=== PATIENT | female | born 1990 | race Caucasian/White ===

== ENCOUNTER 2020-04-09 10:44 | Outpatient (RCR) | payer OTHER, SELFPAY | END 2020-04-09 23:59 | disposition home or self-care (01) | LOC: ANHAUDIO 10:44 | PROVIDERS: Visit Provider Pediatrics | DX: Z46.1 Encounter for fitting and adjustment of hearing aid (principal) | CPT/HCPCS: V5014 ==

== ENCOUNTER 2021-06-01 13:15 | Outpatient (RCR) | payer OTHER, SELFPAY | END 2021-06-01 23:59 | disposition home or self-care (01) | LOC: ANHAUDIO 13:15 | PROVIDERS: PCP Nurse Practitioner Family; Visit Provider Nurse Practitioner Family | DX: Z46.1 Encounter for fitting and adjustment of hearing aid (principal) | CPT/HCPCS: 92593 ==

== ENCOUNTER 2023-05-05 09:48 | Outpatient (CLI) | payer OTHER, SELFPAY ==
--- NOTE | ~2023-05-05 | US_ITS ---
EXAMINATION: US pelvic complete w TV DATE: 05/05/2023 10:26 INDICATION: Pelvic and perineal pain TECHNIQUE: Multiple transabdominal and endovaginal sonographic images of the pelvis were obtained. COMPARISON: 04/11/2023 FINDINGS: The uterus measures 8.0 x 4.3 x 5.3 cm. The endometrial complex measures 4 mm. The right ov ramila measures 2.9 x 2.3 x 2.9 cm. A hypoechoic area abutting the right ovary appears to reflect adjace nt bowel. The left ovary measures 2.9 x 2.1 x 2.1 cm. There is normal vascular flow in the ovaries. T here is no free fluid in the pelvis. IMPRESSION: 1. No sonographic correlate for the patient's symptoms. Reviewed, dictated and finalized at location L.
== END 2023-05-05 09:49 | disposition home or self-care (01) ==
LOC: ANHIMG 09:49
PROVIDERS: PCP Nurse Practitioner Family; Visit Provider Obstetrics & Gynecology
DX: R10.2 Pelvic and perineal pain (principal)
CPT/HCPCS: 76830; 76856

== ENCOUNTER 2023-05-17 10:55 | Outpatient (CLI) | payer OTHER, SELFPAY ==
[2023-05-17 11:22] LABS: Hematocrit 39.3 % (37.0-47.0); Mean Corpuscular HGB Conc 33.1 g/dl (32-36); Mean Corpuscular Hemoglobin 30.3 pg (26-34); Mean Corpuscular Volume 91.6 fl (80-100); Mean Platelet Volume 9.2 fl (7.4-10.4); Platelet Count Result 216 k/mm3 (150-375); Red Blood Count 4.29 M/mm3 (4.2-5.4); Red Cell Distribution Width 13.3 % (11.5-14.5); White Blood Count 5.5 K/mm3 (4.5-10.0)
== END 2023-05-17 10:56 | disposition home or self-care (01) ==
LOC: ANHLAB 10:57
PROVIDERS: PCP Nurse Practitioner Family; Visit Provider Obstetrics & Gynecology
DX: N81.4 Uterovaginal prolapse, unspecified (principal)
CPT/HCPCS: 36415; 85027; 86850; 86900; 86901

== ENCOUNTER 2023-05-19 02:00 | Day surgery (SDC) | payer OTHER, SELFPAY ==
[2023-05-10 16:13] VITALS: BMI 25.7
--- NOTE | 2023-05-10 16:57 | PC.NURSE ---
Report to the Outpatient Waiting Room, entrance under the green pavilion located off [facility], at 0800 on date 05-19-23. Planned Procedure Time: 1000. Time changes happen often and if your time is changed the preop area will call you the afternoon before. - You and your visitor will be asked to self-screen and do not enter if you have any COVID symptoms. - A mask is optional within the hospital at this time. Patients may have clear liquids (water, carbonated beverages, clear teas, apple juice) until 3 hours prior to surgery with a maximum of 20 ounces. 0700 - No food from midnight until time of surgery - Infants may have breast milk until 4 hours before surgery, formula 6 hours prior to surgery. - Children will be allowed to drink immediately following surgery. If applicable, please bring a bottle or sippy cup to assist with drinking. Juice, water, soda, and popsicles are readily available. For infants on formula, please bring formula the day of surgery. Pacifiers are allowed. Take the following medications with a SIP of water the morning of surgery: duloxetine, [place] if needed DO NOT STOP ANY OF YOUR OTHER PRESCRIPTION MEDICATIONS PRIOR TO SURGERY EXCEPT THE FOLLOWING Medications to discontinue per physician: N/A Please no make-up, nail haitian, hairspray, perfume, deodorant, or body powder the day of surgery. No jewelry (including any body piercings) or valuables the day of surgery, leave them at home. Please take a shower or bath the night before, or the morning of, surgery with an antibacterial soap. Wear comfortable, loose fitting clothing. Children are encouraged to wear pajamas. - Jewelry must be removed prior to entering the operating room. Rings and piercings that are not removed may be cut off. - The hospital will not accept responsibility for valuables. - Please leave all valuables, including medications, at home the day of surgery. If you are going home after surgery, a licensed shuttle truck driver must drive you home. - NO public transportation without another adult if you receive anesthesia. - We recommend that an adult stay with you for 24 hours following discharge. - We also recommend that you do not drive, make important decision, drink alcoholic beverages, or take any drugs that were not prescribed by your health care provider for at least 24 hours after your discharge time. For Pediatric surgeries, we recommend two adults accompany the child home. Follow any additional instructions given to you from your surgeon. If you or anyone in your household have experienced Covid symptoms in the past week, please notify your surgeon or the nurse liaison at the phone number below for possible testing. Telephone instructions given to Violette Marion and asked if any additional questions and then verbalized understanding. Patient advised to call surgeon office or pre surgery nurse liaison [phone] if any additional questions.
--- NOTE | 2023-05-18 15:47 | PM.IMHP ---
H&P: HPI History of Present Illness Date/Time: 05/18/23 15:47 33-year-old 2 para 10/24/2002 female presents with multiple complaints. Primarily cycles are heavy lasting 8-10 days 4-5 days heavy with clotting cramping, pain also throughout the month to the point where she is missing activities of daily living. Also relates vaginal pressure and fullness in this is increased with activity and long stretches of standing or walking. She has had a bilateral salpingectomy in the past for contraception, and does not desire any type of hormonal manipulation help with the bleeding. Also declines pessary or nonsurgical management of her uterine prolapse. Chief Complaint: Menometrorrhagia Uterine prolapse Review of Systems Review of Systems: All systems reviewed & are unremarkable except as noted in HPI and below PMFSH Past Medical History Medical History Depression Surgical History Surgical History History of ear surgery BILATERAL EAR RECONSTRUCTION AT AGE 11 History of gynecological procedure (12/13/13) DX LAPARSCOPY, ADHESIOLYSIS History of gynecological procedure (03/07/12) mirena iud insertion/ removal in OR 10/08/2021 History of hysteroscopy (10/08/21) Hscope D&C / IUD removal / Bilateral salpingectomy Hx of ovarian cystectomy (04/16/13) LAPAROSCOPY, LEFT OVARIAN CYSTECTOMY Family History Family History Grandparent Cervical cancer maternal grandmother Social History Social History Smoking status: Never smoker Second hand tobacco smoke exposure: No Alcohol intake: current Drinks per week: 2 Alcohol use details: occasionally drinks hard alcohol Substance use: current Substance use type: marijuana Other substance usage details: smokes daily Lack of Transportation: No Lack of Food: Never True Current Housing: I Have Housing Concerned About Future Housing: No Difficulty Paying Gas/Electric Bills: No Difficulty Paying for Meds: No Currently Unemployed: Decline to Answer Education: High School Diploma/GED Difficulty w/ Childcare or Family Care: Decline to Answer Living arrangements: with family Additional living arrangements comments: Occupation/Education: occupation 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 Gender identity (if verbalized by the patient): Female Sexual Orientation (if Verbalized by the Patient): Straight or Heterosexual Spiritual care concerns: No Meds Home Medications and Allergies Home Medications Medication Instructions Recorded Confirmed Type duloxetine 60 mg capsule,delayed 60 mg PO DAILY 02/11/23 05/10/23 History release ciprofloxacin HCl 500 mg tablet 500 mg PO BID 05/10/23 05/10/23 History hydrocodone 5 mg-acetaminophen 325 1 tablet PO Q4H PRN Pain (Scale 05/10/23 05/10/23 History mg tablet Score 4-6) metronidazole 500 mg tablet 500 mg PO BID 05/10/23 05/10/23 History Allergies Allergy/AdvReac Type Severity Reaction Status Date / Time No Known Allergies Allergy Verified 05/10/23 16:12 Exam Const: General: cooperative, healthy appearing and comfortable Resp: Effort & Inspection: normal respiratory effort Auscultation: clear to auscultation bilaterally Cardio: Rate: regular rate Rhythm: regular rhythm GI: Inspection: normal to inspection Auscultation: normal bowel sounds : External Female Exam: normal external appearance Speculum Exam - Vagina: normal appearance of the vagina Speculum Exam - Cervix: normal appearance of the cervix Bimanual exam- vagina & uterus: normal bimanual exam and Uterus displaced ( prolapse noted) Bimanual Exam- Adnexa, other: normal adnexae Assessment and Plan Assessment and plan (1) Menometrorrhagia: Code(s): N
[2023-05-19] VITALS (16 sets, daily range): BP systolic 94–122; BP diastolic 52–74; PULSE 57–91; RESP 16–20; TEMP 36.6–36.9; O2SAT 95–100; BMI 26.1
[2023-05-19] MEDS: LACTATED RINGERS 1,000 ML 30 ML IV CONT ×2 (08:45→11:52)
[2023-05-19] MEDS: KETOROLAC 15 MG/ML VIAL (*BKC) IV PUSH (08:50)
--- NOTE | 2023-05-19 09:01 | WPDANESEPPF ---
Anes - Initial Pre Proc Eval Procedure: Operation Date: 05/19/23 10:00 Proposed Procedures p Robotic Assisted Total Laparoscopic Hysterectomy - Reagan Mahmood MD Date/Time: 05/19/23 09:01 Surgeon: Reagan Mahmood MD Pre Op Diagnosis: uterine prolapse, Menometrorrhagia Patient Data Age: 33 Gender: F Height: 1.6 m Weight: 66.9 kg Last Vital Signs Temp 36.9 C 05/19/23 08:10 Pulse 73 05/19/23 08:10 Resp 16 05/19/23 08:10 BP 112/74 05/19/23 08:10 Pulse Ox 100 05/19/23 08:10 O2 Del Method Room Air 05/19/23 08:10 Allergies Allergy/AdvReac Type Severity Reaction Status Date / Time No Known Allergies Allergy Verified 05/19/23 08:54 Home Medications Medication Instructions Recorded Confirmed Type duloxetine 60 mg capsule,delayed 60 mg PO DAILY 02/11/23 05/10/23 History release ciprofloxacin HCl 500 mg tablet 500 mg PO BID 05/10/23 05/10/23 History hydrocodone 5 mg-acetaminophen 325 1 tablet PO Q4H PRN Pain (Scale 05/10/23 05/10/23 History mg tablet Score 4-6) metronidazole 500 mg tablet 500 mg PO BID 05/10/23 05/10/23 History Patient hx anesthesia problems: none Family hx anesthesia problems: none Results Review: All pre-operative results and documents have been reviewed as part of the pre-operative evaluation. [facility] Past Medical History Medical History Depression Surgical History Surgical History History of ear surgery BILATERAL EAR RECONSTRUCTION AT AGE 11 History of gynecological procedure (12/13/13) DX LAPARSCOPY, ADHESIOLYSIS History of gynecological procedure (03/07/12) mirena iud insertion/ removal in OR 10/08/2021 History of hysteroscopy (10/08/21) Hscope D&C / IUD removal / Bilateral salpingectomy Hx of ovarian cystectomy (04/16/13) LAPAROSCOPY, LEFT OVARIAN CYSTECTOMY Family History Family History Grandparent Cervical cancer maternal grandmother Social History Social History Smoking status: Never smoker Second hand tobacco smoke exposure: No Alcohol intake: current Drinks per week: 2 Alcohol use details: occasionally drinks hard alcohol Substance use: current Substance use type: marijuana Other substance usage details: smokes daily Lack of Transportation: No Lack of Food: Never True Current Housing: I Have Housing Concerned About Future Housing: No Difficulty Paying Gas/Electric Bills: No Difficulty Paying for Meds: No Currently Unemployed: Decline to Answer Education: High School Diploma/GED Difficulty w/ Childcare or Family Care: Decline to Answer Living arrangements: with family Additional living arrangements comments: Occupation/Education: occupation 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 Gender identity (if verbalized by the patient): Female Sexual Orientation (if Verbalized by the Patient): Straight or Heterosexual Spiritual care concerns: No Anes - Eval Final PreProcedure Day of Procedure 05/19/23 09:01 Patient weight: overweight Heart: regular rate and rhythm Lungs: clear to auscultation Airway: Mallampati scale class II Neurological: alert and oriented Last oral intake: >/= 8 hours ASA classification: III Emergent: no Anesthetic plan: proceed Anesthesia type and monitoring: general ETT and standard monitoring Results Review: All pre-operative results and documents have been reviewed as part of the pre-operative evaluation. Informed Consent: The patient's anesthetic plan and its attendant risks and benefits were discussed with the patient/family/POA. Questions were solicited and answers provided to the satisfaction of the patient/family/POA.
--- NOTE | 2023-05-19 09:28 | WPDHPUPDATE1 ---
History and Physical Update Update Date/Time: 05/19/23 09:28 History and Physical has been reviewed, including an updated exam of the patient. There are NO changes in the patient's condition. Risks, benefits, and alternatives have been discussed and questions answered. Patient agrees to proceed with procedure.
[2023-05-19] MEDS: ceFAZolin 2 GM/D5W 50 ML 2 GM/50 ML BAG IVPB (10:15)
--- NOTE | 2023-05-19 11:38 | W.PM.PROC2 ---
Procedure Note - Detailed Date of Procedure 05/19/23 Pre-op Diagnosis 1. Uterine prolapse 2. Menometrorrhagia 3. Dysmenorrhea Post-op Diagnosis Same Procedure Performed 1 robotic assisted laparoscopic hysterectomy with bilateral salpingectomy and ovarian preservation Surgeon Reagan Mahmood MD Anesthesia General Findings Uterus mildly enlarged and boggy, prolapses to the vaginal introitus. Evidence of prior salpingectomy with distal portion of tube remaining Description of Procedure Patient prepped draped in usual manner for this procedure. Cervical instruments were placed for uterine mobility throughout the case. Abdominal trocar sites were marked and placed under direct visualization. Instruments were placed after the [employer] system was attached and the surgeon moved to the console. Findings were noted as above in 1st bilaterally the the mesial salpinx was cauterized and cut in the sections tube removed. Utero-ovarian ligament cauterized and cut broad ligament cauterized and cut the bladder flap developed without difficulty. Posterior leaf the broad ligament was also incised to skeletonize the uterine vessels. These were cauterized cut without difficulty. Posterior cul-de-sac was entered and this incision was carried circumferentially to separate the cervix from the vagina. Uterus was delivered into the vagina. Vaginal cuff was then closed using V lock suture from right angle to midline and then from the left angle midline with good approximation hemostasis noted. Irrigation was undertaken there was no bleeding [place] arm was placed throughout the vaginal cuff. At this point the procedure was considered terminated, gas allowed to escape, trocars removed and incisions approximated using 4-0 Monocryl. Patient was sent to recovery room in stable condition. Estimated Blood Loss 50 Drains No Packing No Pathology Yes Complications No immediate complications Condition Stable Disposition PACU [facility] Billing Surgery - Charge Forward: Surgery Billing
--- NOTE | 2023-05-19 12:11 | SUR.PHASEI ---
Hearing aids and glasses available to patient upon wake up in the PACU.
[2023-05-19] MEDS: fentaNYL CITRATE INJ (*CRX) 100 MCG/2 ML VIAL 25 MCG IV PUSH ×4 (12:22→12:37)
--- NOTE | 2023-05-19 13:24 | PC.NURSE ---
This patient, Violette Marion, was received from PACU via bed on 05/19/23 at 1324. Patient/family oriented to unit policies and routines.
[2023-05-19] MEDS: DEXTROSE 5%/0.45% SOD CHL 1,000 ML 125 ML IV CONT (13:55)
[2023-05-19] MEDS: KETOROLAC 30 MG/ML VIAL (*BKC) IV PUSH (13:59)
[2023-05-19] MEDS: HYDROcodone/acetaminophen (*CRX) 10-325 MG TABLET 1 TAB PO ×3 (14:32→21:17)
[2023-05-19] MEDS: IBUPROFEN 600 MG TABLET PO (21:16)
[2023-05-20] MEDS: HYDROcodone/acetaminophen (*CRX) 10-325 MG TABLET 1 TAB PO (00:18)
[2023-05-20] MEDS: IBUPROFEN 600 MG TABLET PO (04:08)
[2023-05-20 04:25] VITALS: BP 110/69; PULSE 58; RESP 16; TEMP 36.6; O2SAT 97
[2023-05-20 05:43] LABS: Basophils Percent Auto 0.2 % (0.2-1.2); Immature Granulocyte Absolute 0.04 K/mm3 (0.00-0.031); Immature Granulocyte Percent A 0.4 % (0-0.5); Lymphocytes Absolute Auto 1.41 K/mm3 (0.9-3.2); Lymphocytes Percent Auto 13.7 % (18.3-44.2); Mean Corpuscular HGB Conc 32.4 g/dl (32-36); Mean Corpuscular Hemoglobin 29.9 pg (26-34); Mean Platelet Volume 9.5 fl (7.4-10.4); Monocytes Absolute Auto 0.6 K/mm3 (0.1-0.6); Monocytes Percent Auto 5.5 % (2.6-8.5); Neutrophils Absolute Auto 8.2 K/mm3 (1.3-6.7); Neutrophils Percent Auto 80.2 % (45.5-73.1); Platelet Count Result 235 k/mm3 (150-375); Red Blood Count 4.02 M/mm3 (4.2-5.4); Red Cell Distribution Width 13.2 % (11.5-14.5); White Blood Count 10.3 K/mm3 (4.5-10.0)
[2023-05-20] MEDS: HYDROcodone/acetaminophen (*CRX) 5-325 MG TABLET 1 TAB PO (08:10)
[2023-05-20] MEDS: DULoxetine HCL 60 MG CAPSULE.DR PO (08:10)
[2023-05-20 08:15] VITALS: BP 117/70; PULSE 60; RESP 16; TEMP 37.2; O2SAT 99
[2023-05-20] MEDS: ONDANSETRON HCL ODT 4 MG TABLET (09:19)
== END 2023-05-20 09:35 | disposition home or self-care (01) ==
LOC: ANHSURGERY 08:02 → ANHOB2 13:56
PROVIDERS: PCP Nurse Practitioner Family; Visit Provider Obstetrics & Gynecology
PROC: (CPT 58571; principal; 2023-05-19 10:00)
DX: N81.4 Uterovaginal prolapse, unspecified (principal); D25.0 Submucous leiomyoma of uterus; D25.1 Intramural leiomyoma of uterus; N92.1 Excessive and frequent menstruation with irregular cycle; N94.6 Dysmenorrhea, unspecified; F32.A Depression, unspecified; F12.90 Cannabis use, unspecified, uncomplicated; Z79.891 Long term (current) use of opiate analgesic; N83.8 Other noninflammatory disorders of ovary, fallopian tube and broad ligament
CPT/HCPCS: 58571; S2900; 36415; 85025; 88307; 99199; A9270; J0690; J1100; J1885; J2250; J2405; J2704; J3010; J7120

== ENCOUNTER 2023-10-26 11:00 | Outpatient (CLI) | payer OTHER, SELFPAY ==
--- NOTE | ~2023-10-26 | MMUS_ITS ---
EXAMINATION: MM diagnostic cheo BI w kyra, US breast LT limited HISTORY: Palpable lump in the upper outer quadrant of the left breast TECHNIQUE: Craniocaudal, mediolateral, and mediolateral oblique 3-D tomosynthesis images of the elver ts were performed and synthetic 2-D images were generated. CAD analysis was submitted and interpreted . High resolution limited left breast ultrasound was performed. COMPARISON: None, baseline BREAST PARENCHYMAL COMPOSITION: There are scattered areas of fibroglandular density. FINDINGS: MAMMOGRAPHIC FINDINGS: No suspicious mass, calcification, or architectural distortion are identified in either breast to sug gest malignancy. No mammographic correlate is identified for the patient's reported palpable lump in the upper outer quadrant of the left breast. ULTRASOUND: There is no evidence of focal abnormal solid or cystic mass in the vicinity of the patient's palpable lump in the upper outer quadrant of the left breast. IMPRESSION: 1. No specific mammographic or sonographic correlate is identified for the reported palpable abnormal ity of concern in the upper outer quadrant of the left breast. Further evaluation at this time should be based on clinical assessment. Continued follow-up physical examination is recommended. 2. Recommend routine screening mammography beginning at age 40. BI-RADS Category 1: Negative Reviewed, dictated and finalized at location A. ICAL CARE MANAGER IMPRESSION: 1. No specific mammographic or sonographic correlate is identified for the repo rted palpable abnormality of concern in the upper outer quadrant of the left br east. Further evaluation at this time should be based on clinical assessment. C ontinued follow-up physical examination is recommended. 2. Recommend routine screening mammography beginning at age 40. BI-RADS Category 1: Negative
== END 2023-10-26 11:01 | disposition home or self-care (01) ==
LOC: ANHIMG 11:02
PROVIDERS: PCP Nurse Practitioner Family; Visit Provider Student in an Organized Health Care Education/Training Program
DX: N63.21 Unspecified lump in the left breast, upper outer quadrant (principal)
CPT/HCPCS: 76642; 77062; 77066; G0279

== ENCOUNTER 2024-03-08 19:20 | Emergency (ER) | payer OTHER, SELFPAY ==
[2024-03-08 19:27] VITALS: BP 116/67; PULSE 76; RESP 18; TEMP 36.3; O2SAT 99
--- NOTE | 2024-03-08 19:45 | ED.SKABFB ---
HPI - Skin/Abscess/Foreign Bdy General Chief complaint: Skin/Abscess/Foreign Body Stated complaint: rash Time Seen by Provider: 03/08/24 19:35 Source: patient and RN notes reviewed Mode of arrival: ambulatory Limitations: no limitations History of Present Illness HPI narrative: Patient presents today complaining of rash to the bilateral lateral thighs that appeared at approximately 1:00 p.m. today. 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 She went to the school nurse and got some calamine lotion and cough heard both of her upper and lower legs with the calamine lotion. She did scratch her legs a lot today as well. She is not on any blood thinners or aspirin. She has not taken anything for the itching today, and they do continue to itch. No changes in household products, no new plant or animal exposures. She did recently wean off her duloxetine and start Wellbutrin. Related Data Allergies Allergy/AdvReac Type Severity Reaction Status Date / Time No Known Allergies Allergy Verified 03/08/24 19:28 Review of Systems Review of Systems: CONSTITUTIONAL: Denies body aches, fever, chills, or sweats. EYES: Denies visual changes, redness, or discharge. ENT: Denies rhinorrhea, congestion, sore throat, or otalgia. CARDIOVASCULAR: Denies chest pain, palpitations, or edema. RESPIRATORY: Denies cough or dyspnea. GASTROINTESTINAL: Denies abdominal pain, nausea, vomiting, or diarrhea. GENITOURINARY: Denies dysuria or hematuria. SKIN: + rash MUSCULOSKELETAL: Denies back pain, joint pain, or myalgia. NEUROLOGIC: Denies headache, numbness, tingling, or weakness. PSYCH: Denies depression or anxiety. [facility] Past Medical History Medical History Depression Fallen bladder Hearing loss, bilateral Major depression, recurrent Surgical History Surgical History History of ear surgery BILATERAL EAR RECONSTRUCTION AT AGE 11 History of gynecological procedure (12/13/13) DX LAPARSCOPY, ADHESIOLYSIS History of gynecological procedure (03/07/12) mirena iud insertion/ removal in OR 10/08/2021 History of hysteroscopy (10/08/21) Hscope D&C / IUD removal / Bilateral salpingectomy History of robot-assisted laparoscopic hysterectomy (05/19/23) robotic assisted laparoscopic hysterectomy with bilateral salpingectomy and ovarian preservation Hx of ovarian cystectomy (04/16/13) LAPAROSCOPY, LEFT OVARIAN CYSTECTOMY Family History Family History Grandparent Cervical cancer maternal grandmother Heart disease Social History Social History Smoking status: Never smoker Second hand tobacco smoke exposure: No Alcohol intake: current Drinks per week: 2 Alcohol use details: occasionally drinks hard alcohol Substance use: current Substance use type: marijuana Other substance usage details: smokes daily for relaxation Lack of Transportation: No Lack of Food: Never True Current Housing: I Have Housing Concerned About Future Housing: No Difficulty Paying Gas/Electric Bills: No Difficulty Paying for Meds: No Currently Unemployed: Decline to Answer Education: High School Diploma/GED Difficulty w/ Childcare or Family Care: Decline to Answer Living arrangements: with family Additional living arrangements comments: Occupation/Education: occupation 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 Please see nursing cali
== END 2024-03-08 19:47 | disposition home or self-care (01) ==
PROVIDERS: Emergency Provider Nurse Practitioner; PCP Nurse Practitioner Family
DX: S70.12XA Contusion of left thigh, initial encounter (principal); S70.11XA Contusion of right thigh, initial encounter; X58.XXXA Exposure to other specified factors, initial encounter; F33.9 Major depressive disorder, recurrent, unspecified
CPT/HCPCS: 99211; G0463

== ENCOUNTER 2024-05-24 08:17 | Outpatient (CLI) | payer OTHER, SELFPAY ==
--- NOTE | 2024-06-18 12:32 | WPDSLEEPSTUD ---
Sleep Study Date of Study: 05/24/24 Ordering Provider: Dayan Torres APRN Interpreting Physician: Santa Burden DO Sleep Study Type: Polysomnogram Height: 1.57 m Weight: 69.4 kg Body Mass Index: 28.0 Neck Circumference (inches): 14 [place]: 15 Reason for Sleep Study Daytime hypersomnia Sleep History The patient is a 34-year-old female that had a sleep study ordered by her primary care for evaluation of sleep apnea. 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 She occasionally awakens from sleep short of breath. She occasionally awakens at night with heartburn, belching or cough. She constantly snores and a is constantly loud enough that others complain. She frequently has trouble sleeping when she has a cold. She rarely wakes up gasping for air throughout the night. She constantly has breathing problems at night observed by herself or others. She constantly sweats excessively at night. She rarely has heart palpitations or irregular heartbeats during the night. She constantly falls asleep during the day but never while driving. She occasionally experiences loss of muscle tone when extremely emotional. She constantly has trouble at school or work due to sleepiness. She occasionally feels unable to move while waking up or falling asleep. She constantly experiences vivid dreamlike scenes upon awakening or falling asleep. She denies feeling afraid of going to sleep. She rarely has nightmares. She frequently remembers her dreams. She constantly has thoughts racing through her mind. She constantly feels sad, depressed and anxious. She frequently has muscular tension. She denies noticing parts of her body jerk. She denies kicking during the night. She occasionally has crawling and aching feelings in her legs and occasionally has leg pain during the night. She occasionally grinds her teeth during sleep but never awakens with morning jaw pain. She is occasionally bothered by pain during the day but rarely awakened by pain during the night. She rarely wakes up feeling stiff in the morning. She rarely wakes up with sore or achy muscles. She rarely wakes up with pain in the neck, spine and other joints. She goes to bed between 8-10 p.m. on weekdays and at 10:00 p.m. on the weekends. She is able to fall asleep immediately. She wakes up 2-3 times throughout the night to urinate and is able fall back asleep immediately. She does not have a set wake up time on the weekdays are weekends. She is unsure how many hours of sleep she gets per night. She will stay in bed different lengths of time after waking up the morning. She currently lives with her and 2 children. She denies consuming any caffeinated beverages within 2 hours of bedtime. She denies engaging in physical exercise before bedtime. She denies reading watching television before falling asleep. She will occasionally take naps in the afternoon or the evening but they are not refreshing. She does consume caffeinated beverages throughout the day. She does consume 2-3 alcoholic beverages per day. She denies tobacco use. She does use marijuana. [facility] Past Medical History Medical History Depression Fallen bladder Hearing loss, bilateral Major depression, recurrent Surgical History Surgical History History of ear surgery BILATERAL EAR RECONSTRUCTION AT AGE 11 History of gynecological procedure (12/13/13) DX LAPARSCOPY, ADHESIOLYSIS History of gynecological procedure (03/07/12) mirena iud insertion/ removal in OR 10/08/2021 History of hysteroscopy (10/08/21) Hscope D&C / IUD removal / Bilateral salpingectomy History of robot-assisted laparoscopic hysterectomy (05/19/23) robotic assisted laparoscopic hysterectomy with bilateral salpingectomy and ovarian preservation Hx of ovarian cystectomy (04/16/13) LAPAROSCOPY, LEFT OVARIAN CYSTECTOM
[2024-06-18 12:40] VITALS: BMI 28.0
== END 2024-05-25 07:18 | disposition home or self-care (01) ==
PROVIDERS: PCP Nurse Practitioner Family; Visit Provider Nurse Practitioner Family
DX: G47.10 Hypersomnia, unspecified (principal); G47.19 Other hypersomnia
CPT/HCPCS: 95810

== ENCOUNTER 2025-04-12 10:29 | Emergency (ER) | payer BC, SELFPAY ==
--- NOTE | 2025-04-12 10:36 | ED_ITS ---
HPI - Female Genitourinary General Chief complaint: Urogenital-Female Stated complaint: uti symptoms Time Seen by Provider: 04/12/25 10:55 Source: patient Mode of arrival: ambulatory Limitations: no limitations History of Present Illness HPI Narrative: Violette is a 34-year-old female patient presenting to the clinic today with complaints of possible UTI. She reports she has developed burning, frequency, urgency, bladder pain, and low back pain that started this morning. Has not taken anything for symptoms. Denies any fevers, chills, nausea, or vomiting. Related Data Home Medications ?Medication ?Instructions ?Recorded ?Confirmed ?Last Taken ?Type risperidone 0.5 mg tablet mg PO 05/22/24 05/22/24 Unknown History vilazodone 10 mg tablet mg 04/12/25 Unknown History Allergies Allergy/AdvReac Type Severity Reaction Status Date / Time No Known Allergies Allergy Verified 04/12/25 10:58 Review of Systems Review of Systems: Pertinent positives per HPI. Patient denies any fever, chills, rash, headache, visual changes, dizziness, cough, runny nose, sore throat, shortness of breath, chest pain, palpitations, nausea, vomiting, diarrhea, constipation PMFSH Past Medical History Medical History Hearing loss, bilateral Fallen bladder Major depression, recurrent Depression Surgical History Surgical History History of robot-assisted laparoscopic hysterectomy (05/19/23) robotic assisted laparoscopic hysterectomy with bilateral salpingectomy and ovarian preservation History of hysteroscopy (10/08/21) Hscope D&C / IUD removal / Bilateral salpingectomy History of gynecological procedure (03/07/12) mirena iud insertion/ removal in OR 10/08/2021 Hx of ovarian cystectomy (04/16/13) LAPAROSCOPY, LEFT OVARIAN CYSTECTOMY History of gynecological procedure (12/13/13) DX LAPARSCOPY, ADHESIOLYSIS History of ear surgery BILATERAL EAR RECONSTRUCTION AT AGE 11 Family History Family History Grandparent Cervical cancer maternal grandmother Heart disease Social History Social History (Reviewed 04/12/25 @ 11:10 by AILYN Mcdonald Smoking status: Never smoker Second hand tobacco smoke exposure: No Alcohol intake: current Drinks per week: 2 Alcohol use details: occasionally drinks hard alcohol Substance use: current Substance use type: marijuana Other substance usage details: smokes daily for relaxation Do You Feel Safe in your Home?: Yes Lack of Transportation: No Lack of Food: Often True Current Housing: I Have Housing Concerned About Future Housing: No Difficulty Paying Gas/Electric Bills: YES Difficulty Paying for Meds: YES Currently Unemployed: No Education: High School Diploma/GED Difficulty w/ Childcare or Family Care: No Living arrangements: with family Additional living arrangements comments: Occupation/Education: occupation 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 There is no relevant family history pertinent to the patient complaint. Exam Narrative: General: Well-developed, well nourished, in no apparent distress. Head: Normocephalic, atraumatic. Cardio: Regular rate and rhythm, s1 and s2 normal, no murmur appreciated. Resp: Clear to auscultation bilaterally, no rhonchi, rales, wheezing or rubs. Abdomen: Soft, pliable, bowel sounds present in all quadrants, suprapubic tender to palpation, no organomegly, no CVAT tenderness. Course Course Emergency Course: Portions of this record may have been created with voice recognition software. Level of Care: Express Care Visit Vital Signs Vital signs: Vital Signs Temperature 36.3 C L 04/12/25 10:49 Pulse Rate 88 04/12/25 10:49 Respiratory Rate 16 04/12/25 10:49 Blood Pressure 100/69 04/12/25 10:49 Pulse Oximetry 100 04/12/25 10:49 Oxygen Delivery Room Air 04/12/25 10:49 Temperature 36.3 C L 04/12/25 10:49 Pulse Rate 88 04/12/25 10:49 Respiratory Rate 16 04/12/25 10:49 Blood Pressure 100/69 04/12/25 10:49 Pulse Oximetry 100 04/12/25 10:49 Oxygen Delivery Room Air 04/12/25 10:49 Vital signs reviewed MDM - Female Genitourinary MDM Narrative Medical decision making narrative: At the time of visit patient is resting comfortably on the exam table. Patient appears to be nontoxic. Labs: Urinalysis positive for leukocytes, protein, blood, and nitrates with a trace of ketone. Patient denies taking any azo. We will send urine for culture Plan: I suspect patient has acute UTI. Prescription for Bactrim was sent to the pharmacy. Supportive measures were discussed with the patient and they voiced understanding discharge instructions and agrees to treatment plan. Return precautions reviewed Differential Diagnosis Differential diagnosis: Likely urinary tract infection, cystitis and other (Pyelonephritis) Lab Data Labs: Lab Results 04/12/25 Range/Units 10:56 POC Urine Color Dark POC Urine Clarity Cloudy POC Urine pH 6.0 POC Ur Specif Ashley 1.025 POC Urine Protein 2+ (Negative) POC Ur Glucose (UA) Negative (Negative) POC Urine Ketones Trace (Negative) POC Urine Blood 3+ (Negative) POC Urine Nitrite Positive (Negative) POC Urine Bilirubin Negative (Negative) POC Urine Urobilinogen 0.2 POC U Leukocyte Esteras 3+ (Negative) Discharge Plan Discharge Clinical Impression: UTI (urinary tract infection) Qualifiers: Urinary tract infection type: acute cystitis Hematuria presence: with hematuria Qualified Code(s): N30.01 - Acute cystitis with hematuria Patient Disposition: Home Condition: Stable Instructions: Antibiotic Form, Urinary Tract Infection in Women (ED) Additional Instructions: Urinalysis positive for leukocytes, nitrates, protein, blood, and trace of ketone. We will send urine for culture. Take Bactrim as prescribed Increase fluids and stay well hydrated Wipe front to back. May use wet wipes. Avoid tub baths If sexually active- pee before and after intercourse. Wear cotton panties Avoid tight clothing up against the genitals Follow up with your PCP in 1 week if symptoms persist. Patient Language: Bengali Prescriptions: New sulfamethoxazole-trimethoprim [Bactrim DS] 800-160 mg tablet 1 tablet PO Q12H 7 Days Qty: 14 0RF No Action vilazodone 10 mg tablet risperidone 0.5 mg tablet PO Follow-up/Referrals: Dayan Torres APRN [Primary Care Provider] - Time of Disposition: 11:02 Quality NIHSS Nursing Documentation ED NIHSS nursing documentation: reviewed/agree
[2025-04-12 10:49] VITALS: BP 100/69; PULSE 88; RESP 16; TEMP 36.3; O2SAT 100
[2025-04-12 10:58] LABS: EDUAAPPEAR Cloudy; EDUABILI Negative (Negative); EDUABLOOD 3+ (Negative); EDUACOLOR1 Dark; EDUAGLUCOSE Negative (Negative); EDUAKETONE Trace (Negative); EDUALEUKO 3+ (Negative); EDUANITRATE Positive (Negative); EDUAPROTEIN 2+ (Negative); EDUASPGRAVITY 1.025; EDUAUROBILI 0.2
== END 2025-04-12 11:08 | disposition home or self-care (01) ==
PROVIDERS: Emergency Provider Nurse Practitioner Family; PCP Nurse Practitioner Family
DX: N30.01 Acute cystitis with hematuria (principal)
CPT/HCPCS: 81003; 87086; 87186; 99213; G0463

== ENCOUNTER 2025-04-14 14:30 | Emergency (ER) | payer BC, SELFPAY ==
--- NOTE | 2025-04-14 14:33 | ED_ITS ---
HPI - URI/Sore Throat General Chief Complaint: Upper Respiratory Infection Stated Complaint: stuffed nose congestion Time Seen by Provider: 04/14/25 14:42 Source: patient, RN notes reviewed and old records reviewed Mode of arrival: ambulatory Limitations: no limitations History of Present Illness HPI Narrative: 34-year-old female presents to the [facility] with complaints nasal congestion for 4 days. Was evaluated 2 days ago, diagnosed with the UTI. Reports taking a COVID test this morning at home which she reports is negative Related Data Home Medications ?Medication ?Instructions ?Recorded ?Confirmed ?Last Taken ?Type risperidone 0.5 mg tablet mg PO 05/22/24 05/22/24 Unknown History vilazodone 10 mg tablet mg 04/12/25 Unknown History Allergies Allergy/AdvReac Type Severity Reaction Status Date / Time No Known Allergies Allergy Verified 04/14/25 14:42 Review of Systems Review of Systems: All systems reviewed & are unremarkable except as noted in HPI and below Constitutional: Constitutional: Reports no additional constitutional complaints ENT: Reports as per HPI and Reports nasal congestion Cardiovascular: Cardiovascular: Reports no additional cardiovascular complaints, Denies chest pain and Denies dyspnea Respiratory: Respiratory: Reports as per HPI, Denies chest congestion, Reports cough and Denies dyspnea Musculoskeletal: Musculoskeletal: Reports no additional musculoskeletal complaints Integumentary/Breasts: Skin/Breast: Reports system reviewed and no additional complaints, except as docu PMFSH Past Medical History Medical History Hearing loss, bilateral Fallen bladder Major depression, recurrent Depression Surgical History Surgical History History of robot-assisted laparoscopic hysterectomy (05/19/23) robotic assisted laparoscopic hysterectomy with bilateral salpingectomy and ovarian preservation History of hysteroscopy (10/08/21) Hscope D&C / IUD removal / Bilateral salpingectomy History of gynecological procedure (03/07/12) mirena iud insertion/ removal in OR 10/08/2021 Hx of ovarian cystectomy (04/16/13) LAPAROSCOPY, LEFT OVARIAN CYSTECTOMY History of gynecological procedure (12/13/13) DX LAPARSCOPY, ADHESIOLYSIS History of ear surgery BILATERAL EAR RECONSTRUCTION AT AGE 11 Family History Family History Grandparent Cervical cancer maternal grandmother Heart disease Social History Social History Smoking status: Never smoker Second hand tobacco smoke exposure: No Alcohol intake: current Drinks per week: 2 Alcohol use details: occasionally drinks hard alcohol Substance use: current Substance use type: marijuana Other substance usage details: smokes daily for relaxation Do You Feel Safe in your Home?: Yes Lack of Transportation: No Lack of Food: Often True Current Housing: I Have Housing Concerned About Future Housing: No Difficulty Paying Gas/Electric Bills: YES Difficulty Paying for Meds: YES Currently Unemployed: No Education: High School Diploma/GED Difficulty w/ Childcare or Family Care: No Living arrangements: with family Additional living arrangements comments: Occupation/Education: occupation 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 There is no relevant family history pertinent to the patient complaint. Exam Const: General: cooperative, healthy appearing, comfortable, no acute distress, well developed, alert and well nourished Nutritional Appearance: well nourished Orientation/consciousness: patient oriented x3 Limitations: no limitations HENMT: Head: normal to inspection Ears: external ears normal, EAC's normal, mastoids normal, no periauricular adenopathy and other (Bilateral TM scarring, hearing aids in place) Face/Nose/Sinus: Normal external nose present, Abnormal mucous membranes and turbinates present boggy; not erythematous and Nasal discharge present clear bilateral Mouth: Yes Normal oral and palatal mucosa present, Yes lip normal, Yes tongue normal and Yes moist mucous membranes Throat: uvula midline, postnasal drainage and no uvular edema Eyes: General: appearance normal, both eyes and all related structures Alignment and Position: alignment normal Neck: Neck: normal visual inspection, full ROM, no lymphadenopathy and no meningeal signs Chest: Chest palpation & inspection: normal inspection of the chest Resp: Effort & Inspection: normal respiratory effort and able to speak in complete sentences Auscultation: clear to auscultation bilaterally, no crackles, no rales, no rhonchi and no wheezes Cardio: Rate: regular rate Skin: General skin exam: normal color and no rashes or lesions noted Neuro: General: patient oriented x3, gait normal, moves all extremities and no meningeal signs Cognition (Neuro): normal cognition Speech: normal speech Gait exam (Neuro): Normal gait present Extrem: General: normal to inspection, full ROM, capillary refill normal and normal gait Psych: Appearance: grossly normal and well kempt Mental Status: mental status grossly normal Speech and movement: Normal speech and movement present and Clear speech present Affect: normal affect Attitude: cooperative Course Course Level of Care: Express Care Visit Vital Signs Vital signs: Vital Signs Temperature 96.9 F L 04/14/25 14:39 Pulse Rate 74 04/14/25 14:39 Respiratory Rate 18 04/14/25 14:39 Blood Pressure 98/66 L 04/14/25 14:39 Pulse Oximetry 99 04/14/25 14:39 Oxygen Delivery Room Air 04/14/25 14:39 Temperature 96.9 F L 04/14/25 14:39 Pulse Rate 74 04/14/25 14:39 Respiratory Rate 18 04/14/25 14:39 Blood Pressure 98/66 L 04/14/25 14:39 Pulse Oximetry 99 04/14/25 14:39 Oxygen Delivery Room Air 04/14/25 14:39 Reviewed MDM - URI/Sore Throat MDM Narrative Medical decision making narrative: Patient sitting in exam room. Patient is nontoxic, vitals stable. Patient presents with 4 day history of cough, congestion, stuffy nose. Reports negative at home COVID test, declining COVID test here in clinic Patient's exam consistent with viral Discussed [id number] treatment plan. Discharge instructions reviewed with patient, as well as provided in writing per nursing staff. The instructions also include specific and strict return/GO TO THE ER as well as f/u information. All questions have been answered, and the patient deny any further questions with discharge and discharge plan. Some parts of this dictation were generated by voice recognition software and may contain typographical and/or grammatical inaccuracies. Differential Diagnosis Differential diagnosis: Likely upper respiratory infection, otitis media, sinusitis, viral infection, bronchitis, influenza and pharyngitis Critical Care Time Critical Care Time Critical Care Time: No Discharge Plan Discharge Clinical Impression: Post-nasal drainage Upper respiratory infection Qualifiers: URI type: unspecified viral URI Qualified Code(s): J06.9 - Acute upper respiratory infection, unspecified Patient Disposition: Home Condition: Stable Instructions: Antibiotic Form, Upper Respiratory Infection (ED), Postnasal Drip (DC) Additional Instructions: Your symptoms are likely due to a viral illness, which is not treated with antibiotics. Typically viral infections last 7-10 days, can linger for couple of weeks. It is very important to treat your symptoms. Drink plenty of water, Gatorade, Pedialyte, ice pops or Jell-O. -Alternate Tylenol and Motrin per package directions for fever or pain. You can alternate every 4 hours -Antihistamine medication such as Zyrtec/Claritin/Miya during the day can help improve symptoms. -doing daily nasal irrigations can help relieve pressure your sinuses. Things like a Neti pot -Use Flonase twice a day for 5 days then daily to help reduce the inflammation and dry up your sinuses. -You can also use Mucinex. Be sure to drink plenty of water with this medication at least 8 ounces with every dose and it is important to drink 8 to 10 glasses of water per day. Water is a natural decongestant -Eat and drink things that are easy to swallow, like tea or soup, or popsicles. -Oral rinses such as: Salt water gargles and/or may use topical anesthetic (eg. Chloraseptic spray) or lozenges to relieve dryness or throat pain). -Frequent hand washing or hand senior functional analyst is one of the best ways to prevent spread of infection. -Using a vaporizer or humidifier at night will also help thin secretions and help with coughing up phlegm. -Follow up with primary care provider in 7-10 days if condition is not improving - For new or worsening symptoms go directly to the nearest ER Patient Language: Somali Prescriptions: New fluticasone propionate [24 Hour Allergy Relief] 50 mcg/actuation spray,suspension 2 spray intranasal DAILY Qty: 16 0RF Rx Instructions: administer into each nostril No Action vilazodone 10 mg tablet sulfamethoxazole-trimethoprim [Bactrim DS] 800-160 mg tablet 1 tablet PO Q12H 7 Days Qty: 14 0RF risperidone 0.5 mg tablet PO Follow-up/Referrals: Dayan Torres APRN [Primary Care Provider] - 1 Week ([facility] care follow up ) Stand Alone Forms: Work/School Release IP Time of Disposition: 14:49
[2025-04-14 14:39] VITALS: BP 98/66; PULSE 74; RESP 18; TEMP 36.1; O2SAT 99
== END 2025-04-14 14:52 | disposition home or self-care (01) ==
PROVIDERS: Emergency Provider Nurse Practitioner; PCP Nurse Practitioner Family
DX: J06.9 Acute upper respiratory infection, unspecified (principal); R09.82 Postnasal drip
CPT/HCPCS: 99213; G0463

== ENCOUNTER 2025-04-17 13:44 | Emergency (ER) | payer BC, SELFPAY ==
[2025-04-17 13:47] VITALS: BP 76/55; PULSE 77; RESP 20; TEMP 36.3; O2SAT 100
--- NOTE | 2025-04-17 13:47 | ED_ITS ---
HPI - Nausea/Vomiting/Diarrhea General Chief complaint: Nausea/Vomiting/Diarrhea Stated complaint: vomiting Time Seen by Provider: 04/17/25 13:57 Source: patient and RN notes reviewed Mode of arrival: ambulatory Limitations: no limitations History of Present Illness HPI Narrative: 34-year-old female presents with concern for vomiting and epigastric abdominal pain. She reports symptoms started today, she has vomited 10 times. She denies diarrhea or constipation. Her last bowel movement was today. She is currently on an antibiotic, Bactrim, for urinary tract infection. Reports her urinary tract infection symptoms have improved. She denies history of abdominal problems. Patient has tubal ligation and hysterectomy MD elicited complaint: nausea and vomiting Related Data Home Medications ?Medication ?Instructions ?Recorded ?Confirmed ?Last Taken ?Type risperidone 0.5 mg tablet mg PO 05/22/24 05/22/24 Unknown History vilazodone 10 mg tablet mg 04/12/25 Unknown History Allergies Allergy/AdvReac Type Severity Reaction Status Date / Time No Known Allergies Allergy Verified 04/17/25 13:48 Review of Systems Review of Systems: CONSTITUTIONAL: Denies malaise, chills, sweats, or fever. ENT: Denies rhinorrhea, congestion, sinus pain, otalgia or sore throat. CARDIOVASCULAR: Denies chest pain, palpitations, or edema. RESPIRATORY: Denies cough or dyspnea. GASTROINTESTINAL: Reports epigastric abdominal pain, nausea, vomiting. Denies constipation, diarrhea, bloody, or mucous stools. GENITOURINARY: Denies dysuria or hematuria. MUSCULOSKELETAL: Denies myalgia. NEUROLOGIC: Denies headache. All systems reviewed & are unremarkable except as noted in HPI and below PMFSH Past Medical History Medical History Hearing loss, bilateral Fallen bladder Major depression, recurrent Depression Surgical History Surgical History History of robot-assisted laparoscopic hysterectomy (05/19/23) robotic assisted laparoscopic hysterectomy with bilateral salpingectomy and ovarian preservation History of hysteroscopy (10/08/21) Hscope D&C / IUD removal / Bilateral salpingectomy History of gynecological procedure (03/07/12) mirena iud insertion/ removal in OR 10/08/2021 Hx of ovarian cystectomy (04/16/13) LAPAROSCOPY, LEFT OVARIAN CYSTECTOMY History of gynecological procedure (12/13/13) DX LAPARSCOPY, ADHESIOLYSIS History of ear surgery BILATERAL EAR RECONSTRUCTION AT AGE 11 Family History Family History Grandparent Cervical cancer maternal grandmother Heart disease Social History Social History Smoking status: Never smoker Second hand tobacco smoke exposure: No Alcohol intake: current Drinks per week: 2 Alcohol use details: occasionally drinks hard alcohol Substance use: current Substance use type: marijuana Other substance usage details: smokes daily for relaxation Do You Feel Safe in your Home?: Yes Lack of Transportation: No Lack of Food: Often True Current Housing: I Have Housing Concerned About Future Housing: No Difficulty Paying Gas/Electric Bills: YES Difficulty Paying for Meds: YES Currently Unemployed: No Education: High School Diploma/GED Difficulty w/ Childcare or Family Care: No Living arrangements: with family Additional living arrangements comments: Occupation/Education: occupation 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 There is no relevant family history pertinent to the presenting complaint Exam Narrative: GENERAL: Well-appearing, well-nourished, and in no acute distress. HEAD: Normocephalic, atraumatic. EYES: PERRLA, conjunctivae clear, and EOMI. ENT: Nares clear, turbinates pink, no rhinorrhea or epistaxis. Mucous membranes moist. Oropharynx without edema, erythema, or lesions. Tonsils not enlarged and without exudate. NECK: Supple. No lymphadenopathy CHEST: Speaks in full sentences. No respiratory distress. HEART: Regular rate and rhythm. ABDOMEN: Soft, flat, nondistended, nontender. No guarding, rebound tenderness, or rigidity. No pulsatile masses. Bowel sounds present in all four quadrants. Negative Whitley?s sign. No periumbilical tenderness. No Supra public tenderness or distension. No hernia noted. No scars or surface trauma. SKIN: Warm, dry, no rash. NEURO: Alert and oriented x3. PSYCH: Normal mood and affect Course Course Emergency Course: Patient is aware of diagnosis, understands and agrees to treatment plan. Anticipatory guidance given. Patient agrees to follow-up as directed and is aware of reasons to seek care at the emergency department. Portions of this record may have been created with voice recognition software Level of Care: Express Care Visit Vital Signs Vital signs: Reviewed. Transfer Transfered to: [place] Transportation: [facility] Transfer rationale: Abdominal pain MDM - Nausea/Vomiting/Diarrhea MDM Narrative Medical decision making narrative: Patient is Nontoxic appearing in no acute distress Critical Care Time Critical Care Time Critical Care Time: No Discharge Plan Discharge Clinical Impression: Abdominal pain with vomiting Patient Disposition: Acute Care Hospital Condition: Stable Patient Language: Armenian Prescriptions: No Action fluticasone propionate [24 Hour Allergy Relief] 50 mcg/actuation spray,suspen paxton 2 spray intranasal DAILY Qty: 16 0RF Rx Instructions: administer into each nostril vilazodone 10 mg tablet sulfamethoxazole-trimethoprim [Bactrim DS] 800-160 mg tablet 1 tablet PO Q12H 7 Days Qty: 14 0RF risperidone 0.5 mg tablet PO Follow-up/Referrals: Dayan Torres APRN [Primary Care Provider] - Time of Disposition: 14:25
--- NOTE | 2025-04-17 13:58 | PC.NURSE ---
1356- Pt came out of RR. Stated angrily, I cant pee right now. Was given water. Pt stated, I can't drink that I've been vomiting.
[2025-04-17] MEDS: ONDANSETRON HCL ODT 4 MG TABLET PO (14:06)
--- NOTE | 2025-04-17 14:08 | PC.NURSE ---
1406- Pt annoyed when asked to verify name and prior to medication administration. Pt was not wearing armband, became even more annoyed when band placed on R arm.
== END 2025-04-17 14:30 | disposition short-term general hospital (02) ==
PROVIDERS: Emergency Provider Nurse Practitioner; PCP Nurse Practitioner Family
DX: R10.13 Epigastric pain (principal); R11.2 Nausea with vomiting, unspecified
CPT/HCPCS: 99215; A9270; G0463

== ENCOUNTER 2025-04-17 14:56 | Emergency (ER) | payer BC, SELFPAY ==
--- NOTE | ~2025-04-17 | CT_ITS ---
CLINICAL INDICATION: Abdominal pain and hematuria COMPARISON: None. TECHNIQUE: Multiple contiguous axial images of the abdomen and pelvis were performed following the ad ministration of with 100 mL Omnipaque-350 intravenous contrast The dose-length product (DLP) was 260.90 mGy-cm. Automated exposure control and iterative reconstruction technique were employed. FINDINGS/OBSERVATIONS: Visualized lower thorax: The bilateral lung bases are clear. The heart is of normal size, without pericardial effusion. Liver: The liver demonstrates homogeneous enhancement and is not enlarged. Gallbladder and biliary system: The gallbladder is only minimally distended, and otherwise unremarkable. Pancreas: The pancreas enhances homogeneously without ductal dilatation. Spleen: The spleen enhances homogeneously and is not enlarged. Kidneys: The bilateral kidneys enhance symmetrically without hydronephrosis or renal calculi. Adrenal glands: Unremarkable. Gastrointestinal tract: Fecal stasis within the colon. Appendix: The air-filled appendix is of normal caliber (axial series, images 120 through 136). Vasculature: Unremarkable. Lymph nodes: No pathologically enlarged or morphologically suspicious lymph nodes within the retroperitoneum or at the root of the mesentery. Pelvic structures: The bladder is only minimally distended The uterus is surgically absent. Body wall and musculoskeletal: No significant degenerative disease within the lower thoracic or lumbosacral spine. IMPRESSION: No obstructive uropathy. Normal appendix. Reviewed, dictated and finalized at location A.
[2025-04-17 15:38] VITALS: BP 110/59; PULSE 84; RESP 22; TEMP 36.8; O2SAT 100
[2025-04-17 17:26] LABS: Basophils Percent Auto 0.2 % (0.2-1.2); Eosinophils Absolute Auto 1.6 K/mm3 (0-0.3); Eosinophils Percent Auto 8.9 % (0-4.4); Hematocrit 36.1 % (37.0-47.0); Hemoglobin 12.3 g/dL (12.0-15.0); Immature Granulocyte Absolute 0.11 K/mm3 (0.00-0.031); Immature Granulocyte Percent A 0.6 % (0-0.5); Lymphocytes Absolute Auto 0.91 K/mm3 (0.9-3.2); Lymphocytes Percent Auto 5.2 % (18.3-44.2); Mean Corpuscular HGB Conc 34.1 g/dl (32-36); Mean Corpuscular Hemoglobin 29.2 pg (26-34); Mean Corpuscular Volume 85.7 fl (80-100); Mean Platelet Volume 9.1 fl (7.4-10.4); Monocytes Absolute Auto 0.4 K/mm3 (0.1-0.6); Monocytes Percent Auto 2.4 % (2.6-8.5); Neutrophils Absolute Auto 14.5 K/mm3 (1.3-6.7); Neutrophils Percent Auto 82.7 % (45.5-73.1); Platelet Count Result 224 k/mm3 (150-375); Red Blood Count 4.21 M/mm3 (4.2-5.4); Red Cell Distribution Width 12.6 % (11.5-14.5); White Blood Count 17.5 K/mm3 (4.5-10.0)
[2025-04-17 17:35] LABS: Alanine Aminotransferase 21 U/L (6-35); Albumin Level 4.8 g/dL (3.5-5.1); Alkaline Phosphatase 58 U/L (38-126); Anion Gap 16 mmol/L (4-12); Aspartate Amino Transferase 29 U/L (14-36); Bilirubin,Total 0.3 mg/dL (0.2-1.3); Blood Urea Nitrogen 12 mg/dL (7-17); Calcium 9.5 mg/dL (8.4-10.2); Carbon Dioxide 21 mmol/L (22-30); Chloride 99 mmol/L (98-107); Estimated CRCL calculation 82 ml/min; Estimated Glomerular Filt Rate > 60; Glucose 158 mg/dL (65-110); Lipase 30 U/L (23-300); Potassium 4.1 mmol/L (3.4-5.0); Sodium 136 mmol/L (137-145); Total Protein 8.1 g/dL (6.3-8.2)
[2025-04-17 17:44] LABS: Add Urine Microscopic? YES; Appearance Urine Cloudy (Clear); Bacteria Urine None Seen /hpf; Bilirubin Urine Negative (Negative); Blood Urine Negative (Negative); Color Urine Yellow (Yellow); Glucose Urine UA 3+ mg/dL (Negative); Ketones Urine 3+ mg/dL (Negative); Leukocyte Esterase Ur Negative LEU/UL (Negative); Need Manual Microscopic Reviewed; Nitrate Urine Negative (Negative); Non Pathogenic Casts 0-2; Protein Urine Trace mg/dL (Negative); RBC Urine 21-50 /hpf (0-2); Specific Grav Ur 1.037 (1.001-1.035); Squamous Epithelial Cell Urine Moderate /hpf (Few); WBC Urine 0-5 /hpf (0-3)
--- NOTE | 2025-04-17 17:58 | ED.ABDPAIN ---
HPI - Abdominal Pain General Chief Complaint: Abdominal Pain Stated Complaint: Abdominal pain with N/V since this am Time Seen by Provider: 04/17/25 17:11 Source: patient and family () Mode of arrival: EMS Limitations: physical limitation (difficulty hearing but can do so when spoken to directly and at an appropriate distance) History of Present Illness HPI narrative: Patient presents with report of abdominal pain and nausea/vomiting since this morning. She states she has vomited 10 times. She is requesting pain medicine. She has a history of urinary tract infections and is currently on antibiotic therapy for this. Also history of ovarian cyst. Location of the pain is difficult to identify. Her last bowel movement was today and she denies any diarrhea, constipation, bloody stools. No fevers or chills. History of hysterectomy. Her has had an earache but otherwise now with similar symptoms. Related Data Home Medications ?Medication ?Instructions ?Recorded ?Confirmed ?Last Taken ?Type risperidone 0.5 mg tablet mg PO 05/22/24 05/22/24 Unknown History vilazodone 10 mg tablet mg 04/12/25 Unknown History Allergies Allergy/AdvReac Type Severity Reaction Status Date / Time No Known Allergies Allergy Verified 04/17/25 13:48 [facility] Past Medical History Medical History Hearing loss, bilateral Fallen bladder Major depression, recurrent Depression Surgical History Surgical History History of robot-assisted laparoscopic hysterectomy (05/19/23) robotic assisted laparoscopic hysterectomy with bilateral salpingectomy and ovarian preservation History of hysteroscopy (10/08/21) Hscope D&C / IUD removal / Bilateral salpingectomy History of gynecological procedure (03/07/12) mirena iud insertion/ removal in OR 10/08/2021 Hx of ovarian cystectomy (04/16/13) LAPAROSCOPY, LEFT OVARIAN CYSTECTOMY History of gynecological procedure (12/13/13) DX LAPARSCOPY, ADHESIOLYSIS History of ear surgery BILATERAL EAR RECONSTRUCTION AT AGE 11 Family History Family History Grandparent Cervical cancer maternal grandmother Heart disease Social History Social History Smoking status: Never smoker Second hand tobacco smoke exposure: No Alcohol intake: current Drinks per week: 2 Alcohol use details: occasionally drinks hard alcohol Substance use: current Substance use type: marijuana Other substance usage details: smokes daily for relaxation Do You Feel Safe in your Home?: Yes Lack of Transportation: No Lack of Food: Often True Current Housing: I Have Housing Concerned About Future Housing: No Difficulty Paying Gas/Electric Bills: YES Difficulty Paying for Meds: YES Currently Unemployed: No Education: High School Diploma/GED Difficulty w/ Childcare or Family Care: No Living arrangements: with family Additional living arrangements comments: Occupation/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 HEAD: Normocephalic, atraumatic. EYES: Non injected, non icteric ENT: Nares clear, no rhinorrhea or epistaxis. Some diminished hearing but can understand when spoken to slowly and directly. Tacky mucous membranes NECK: Supple. No meningismus. CHEST: Speaking in full sentences. No respiratory distress. HEART: Regular rate and rhythm. ABDOMEN: Soft, nondistended. No tenderness to palpation. No rigidity or guarding. Not peritoneal. Whitley sign negative. EXTREMITIES: Normal range of motion. No lower extremity edema. SKIN: Warm, dry, no rash. NEURO: No focal deficits. Alert and oriented. Answering questions. Following commands. Normal speech without aphasia or dysarthria. PSYCH: Congruent mood and affect. Course Vital Signs Vital signs: Vital Signs Temperature 98.2 F 04/17/25 15:38 Pulse Rate 84 04/17/25 15:38 Respiratory Rate 22 H 04/17/25 15:38 Blood Pressure 110/59 L 04/17/25 15:38 Pulse Oximetry 100 04/17/25 15:38 Temperature 98.2 F 04/17/25 15:38 Pulse Rate 84 04/17/25 15:38 Respiratory Rate 22 H 04/17/25 15:38 Blood Pressure 110/59 L 04/17/25 15:38 Pulse Oximetry 100 04/17/25 15:38 MDM - Abdominal Pain MDM Narrative Medical decision making narrative: Patient presents with abdominal pain and nausea and vomiting starting this morning. In the emergency department she is afebrile with vital signs notable for mild tachypnea. Her diastolic blood pressure is slightly low however mean arterial pressure is 76mmHg . 2 L IV fluids are ordered for the 3+ ketonuria. She also has a marked leukocytosis. CT abdomen pelvis imaging ordered given this and her surgical history per review of the EMR. In addition she had hematuria on urinalysis. Patient is still having pain per nurse. Ketorolac acetaminophen and Bentyl are ordered as CT does not demonstrate acute surgical process. There is notation of fecal stasis within the body of the radiology report. Miralax ordered. Reassessed at 8:35 p.m. and she states the pain medicines have not helped. Will trial Haldol + diphenhydramine as patient states that she does use marijuana daily/near daily. Reassessed at 9:15 p.m. and feeling much better. In sum, This patient presents with abdominal pain and vomiting of unclear etiology, although suspicious for cannabinoid hyperemesis syndrome. A CT scan was performed to evaluate for potential causes of the abdominal pain, however, neither the clinical exam nor the CT has identified an emergent etiology for the abdominal pain. Specifically, given the benign exam, the laboratory studies, and unremarkable CT, I have a very low suspicion for appendicitis, ischemic bowel, bowel perforation, or any other life threatening disease. I have discussed with the patient the level of uncertainty with undifferentiated abdominal pain and clearly explained the need to follow-up as noted on the discharge instructions, or return to the Emergency Department immediately if the pain worsens, develops fever, persistent and uncontrolled vomiting, or for any new symptoms or concerns. She is not in need of a work note and she is off for the summer. We did discuss the diagnosis of cannabinoid hyperemesis syndrome and I encouraged her to read more about and trial cessation of marijuana to see if symptoms improved. She and her verifies understanding. We also discussed the notation of fecal stasis/constipation and discussed a bowel regimen. Patient discharged with prescriptions for both stool softeners, laxatives as well as Bentyl and Zofran. Stable for discharge. Differential Diagnosis Differential diagnosis: Likely abdominal pain, acute appendicitis, calculus of kidney, constipation, diverticulitis, endometriosis, gastroenteritis, pancreatitis, small bowel obstruction and other (Gastritis, peptic ulcer disease; cannabinoid hyperemesis syndrome ; cyclic vomiting) Lab Data Attestation: I reviewed the patient's lab results. 04/17/25 17:20 04/17/25 17:20 Labs: Lab Results 04/17/25 04/17/25 Range/Units 17:20 17:25 WBC 17.5 H (4.5-10.0) K/mm3 RBC 4.21 (4.2-5.4) M/mm3 Hgb 12.3 (12.0-15.0) g/dL Hct 36.1 L (37.0-47.0) % MCV 85.7 (80-100) fl MCH 29.2 (26-34) pg MCHC 34.1 (32-36) g/dl RDW 12.6 (11.5-14.5) % Plt Count 224 (150-375) k/mm3 MPV 9.1 (7.4-10.4) fl Immature Gran % (Auto) 0.6 H (0-0.5) % Neut % (Auto) 82.7 H (45.5-73.1) % Lymph % (Auto) 5.2 L (18.3-44.2) % [place] % (Auto) 2.4 L (2.6-8.5) % Eos % (Auto) 8.9 H (0-4.4) % Baso % (Auto) 0.2 (0.2-1.2) % Lymph # (Auto) 0.91 (0.9-3.2) K/mm3 [place] # (Auto) 0.4 (0.1-0.6) K/mm3 Eos # (Auto) 1.6 H (0-0.3) K/mm3 Baso # (Auto) 0.0 (0.0-0.1) K/mm3 Abs Immat Gran (auto) 0.11 H (0.00-0.031) K/mm3 Absolute Neuts (auto) 14.5 H (1.3-6.7) K/mm3 Absolute Nucleated RBC 0.000 (0.0-0.012) K/mm3 Nucleated RBC % 0.0 (0.0-0.2) % Sodium 136 L (137-145) mmol/L Potassium 4.1 (3.4-5.0) mmol/L Chloride 99 (98-107) mmol/L Carbon Dioxide 21 L (22-30) mmol/L Anion Gap 16 H (4-12) mmol/L BUN 12 (7-17) mg/dL Creatinine 0.65 L (0.7-1.0) mg/dL Estim Creat Clear Calc 82 ml/min Estimated GFR > 60 (59 - ) Glucose 158 H (65-110) mg/dL Calcium 9.5 (8.4-10.2) mg/dL Total Bilirubin 0.3 (0.2-1.3) mg/dL AST 29 (14-36) U/L ALT 21 (6-35) U/L Alkaline Phosphatase 58 (38-126) U/L Total Protein 8.1 (6.3-8.2) g/dL Albumin 4.8 (3.5-5.1) g/dL Lipase 30 (23-300) U/L Urine Color Yellow (Yellow) Urine Appearance Cloudy H (Clear) Urine pH 7.0 (5.0-9.0) Ur Specific Mouthcard 1.037 H (1.001-1.035) Urine Protein Trace (Negative) mg/dL Urine Glucose (UA) 3+ H (Negative) mg/dL Urine Ketones 3+ H (Negative) mg/dL Ur Blood (Man) Negative (Negative) Urine Nitrate Negative (Negative) Urine Bilirubin Negative (Negative) Urine Urobilinogen 1.0 (<2.0) mg/dL Add Ur Microanalysis Reviewed Leukocyte Esterase Rfl Negative (Negative) PREETHI/UL Urine RBC 21-50 H (0-2) /hpf Urine WBC 0-5 (0-3) /hpf Ur Squamous Epith Cells Moderate (Few) /hpf Urine Bacteria None seen /hpf Urine Casts 0-2 Imaging Data Radiologist's impression: ITS Impressions Abdomen/Pelvis CT 04/17/25 18:51 IMPRESSION: No obstructive uropathy. Normal appendix. Discharge Plan Discharge Clinical Impression: Ketonuria, Leukocytosis, Abdominal pain, Constipation, Marijuana use Patient Disposition: Home Condition: Stable Instructions: Antibiotic Form, Constipation (ED), High Fiber Diet (ED), Leukocytosis (ED), Abdominal Pain (ED) Additional Instructions: No clear cause of your symptoms was identified although you did have evidence of stool burden/constipation/fecal stasis on CT. Recommend drinking more water and eating a diet high in fiber. You can also use a bowel regimen that includes stool softeners like psyllium/fiber (Metamucil), Miralax, and, if needed a laxative (e.g. magnesium citrate). Follow-up with primary care provider. The Bentyl/dicyclomine can help with the cramping sensation and works on the smooth muscle of your GI tract. Follow up Return to the Emergency Department immediately if the pain worsens, develops fever, persistent and uncontrolled vomiting, or for any new symptoms or concerns. The oral disintegrating tablets of Zofran can help with nausea and vomiting. As we discussed, encouraged to read about the diagnosis of hyperemesis cannabinoid syndrome as your symptoms may be related to this. You should consider trialing stopping and see if symptoms improve. Patient Language: Tanzanian Prescriptions: New ondansetron 4 mg tablet,disintegrating 4 mg PO Q8H PRN (Reason: nausea and vomiting) Qty: 7 0RF dicyclomine 10 mg capsule 10 mg PO BID PRN (Reason: abdominal pain) Qty: 10 0RF polyethylene glycol 3350 [Miralax] 17 gram/dose powder 17 g PO DAILY Qty: 119 0RF psyllium husk [Metamucil] 0.4 gram capsule 0.4 g PO DAILY Qty: 30 0RF magnesium citrate Solution 150 ml PO DAILY PRN (Reason: constipation) Qty: 296 0RF No Action fluticasone propionate [24 Hour Allergy Relief] 50 mcg/actuation spray,suspension 2 spray intranasal DAILY Qty: 16 0RF Rx Instructions: administer into each nostril vilazodone 10 mg tablet sulfamethoxazole-trimethoprim [Bactrim DS] 800-160 mg tablet 1 tablet PO Q12H 7 Days Qty: 14 0RF risperidone 0.5 mg tablet PO Follow-up/Referrals: Dayan Torres APRN [Primary Care Provider] - Time of Disposition: 21:20
[2025-04-17] MEDS: MORPHINE SULFATE (*CRX) 4 MG/ML INJ IV PUSH (18:19)
[2025-04-17] MEDS: SODIUM CHLORIDE 0.9% IV 1,000 ML 999 ML IV CONT ×2 (18:19)
[2025-04-17] MEDS: FAMOTIDINE 20 MG/2 ML VIAL IV PUSH (18:19)
[2025-04-17] MEDS: ONDANSETRON INJ 4 MG/2 ML VIAL IV PUSH (18:19)
[2025-04-17] MEDS: ACETAMINOPHEN 500 MG TABLET 1000 MG PO (19:55)
[2025-04-17] MEDS: DICYCLOMINE HCL 10 MG CAPSULE 20 MG PO (19:55)
[2025-04-17] MEDS: KETOROLAC 15 MG/ML VIAL (*BKC) IV PUSH (19:55)
[2025-04-17] MEDS: polyethylene glycoL 3350 17 GM POWD.PACK PO (19:56)
[2025-04-17] MEDS: HALOPERIDOL LACTATE 5 MG/ML VIAL 2.5 MG IV PUSH (20:54)
[2025-04-17] MEDS: diphenhydrAMINE HCl INJ 50 MG/ML VIAL 25 MG IV PUSH (20:54)
== END 2025-04-17 21:38 | disposition home or self-care (01) ==
PROVIDERS: Emergency Medicine; Emergency Provider Student in an Organized Health Care Education/Training Program; PCP Nurse Practitioner Family
DX: K59.00 Constipation, unspecified (principal); D72.829 Elevated white blood cell count, unspecified; R82.4 Acetonuria; R10.9 Unspecified abdominal pain; F12.90 Cannabis use, unspecified, uncomplicated; N39.0 Urinary tract infection, site not specified; H91.93 Unspecified hearing loss, bilateral; Z90.710 Acquired absence of both cervix and uterus; Z90.79 Acquired absence of other genital organ(s)
CPT/HCPCS: 36415; 74177; 80053; 81001; 83690; 85025; 96361; 96374; 96375; 99284; A9270; J1200; J1630; J1885; J2270; J2405; J7030; Q9967

== ENCOUNTER 2025-10-02 14:30 | Emergency (ER) | payer BC, SELFPAY ==
--- OUTSIDE RECORDS SUMMARY | 2025-05-10 14:20 | XMS_ITS ---
Author Organization [facility] Address [address] [place] [address] Phone [phone] Care Team Providers Care Candy Spreader Helper Name Role Phone Ana Maria Arriola Primary Care Provider [phone] REASON FOR VISIT 3 Month Psych F/U & Med Refill Social History Sex Observation Social History Observation Description Sex Observation Female Sexual Orientation Social History Observation Description Sexual Orientation Choose not to disclo se Gender Identity Social History Observation Description Gender Identity Female Encounters Date Time Type Facility Location Provider Diagnosis 05/10/2025 02:20 PM Office Visit [address] [address] Ana Maria Arriola Plan Of Treatment No Information Medical (General) History Surgical History Surgery Date(Month/Year) tubal ligation 09/2021 cyst removed off if toe on right foot Hospitalization History Reason Date(Month/Year) Progress Notes * Yuli LAN:1990 ([age] yo F)Acc No.[id number]:05/10/2025 UNLOCKED PROGRESS NOTE Patient: Violette HENSLEY Provider: Gus Arriola, OMA, PMHNP-BC, TRANSFER IRON OPERATOR :1990 A ge:34 Y S ex:Female Date:05/10/2025 Address:[address] [place], [place] [id number] Subjective: * Chief Complaints: * 1 . 3 Month Psych F/U & Med Refill. * Screening: * * Medical History: Objective: * Vitals: Assessment: Plan: * Treatment: * * Electronic signature of Michelle Arriola on 10/02/2025 at 07:13 PM MOP HANDLE ASSEMBLER Sign off status: Pending * Provider: Gus Arriola DNP, PMHNP-, TRANSFER IRON OPERATOR Date: 0 05/10/2025 Generated for Printing/Faxing/eTransmitting on: 1 12/03/2024 07:13 PM MOP HANDLE ASSEMBLER
--- NOTE | ~2025-10-02 | XR_ITS ---
EXAMINATION: XR wrist LT min 3V, 10/02/2025 14:46 CUSTOMER DEVELOPMENT REPRESENTATIVE HISTORY: Fell on outstretched hand yesterday COMPARISON: No comparisons available. Findings: No acute fracture or malalignment. No significant degenerative changes. Soft tissues unremarkable. Impression: No acute fracture or malalignment. Reviewed, dictated and finalized at location P. OMER DEVELOPMENT REPRESENTATIVE Impression: No acute fracture or malalignment.
[2025-10-02 14:38] VITALS: BP 102/66; PULSE 78; RESP 16; TEMP 36.3; O2SAT 100
--- NOTE | 2025-10-02 14:44 | ED_ITS ---
HPI - Extremity Injury (Upper) General Chief Complaint: Extremity Injury, Upper Stated Complaint: fall Time Seen by Provider: 10/02/25 14:50 Source: patient and RN notes reviewed Mode of arrival: ambulatory Limitations: no limitations History of Present Illness HPI narrative: 35-year-old female presents with concern for left wrist pain. Reports yesterday she slipped on a sidewalk catching herself on her outstretched left hand. She denies pain at rest, reports tenderness and pain with range of motion MD complaint: injury to: left and wrist Related Data Home Medications ?Medication ?Instructions ?Recorded ?Confirmed ?Last Taken ?Type risperidone 0.5 mg tablet mg PO 05/22/24 05/28/25 Unkn own History vilazodone 10 mg tablet mg 04/12/25 05/28/25 Unknown History trospium 20 mg tablet 20 mg PO BID 05/28/25 Unknown History Allergies Allergy/AdvReac Type Severity Reaction Status Date / Time No Known Allergies Allergy Verified 10/02/25 14:38 Review of Systems Review of Systems: CONSTITUTIONAL: Denies malaise, chills, sweats, or fever. SKIN: Denies rash or itching, open skin, laceration, abrasion, redness, warmth, swelling. MUSCULOSKELETAL: Reports left wrist pain NEUROLOGIC: Denies numbness, weakness All systems reviewed & are unremarkable except as noted in HPI and below PMFSH Past Medical History Medical History Hearing loss, bilateral Fallen bladder Major depression, recurrent Depression Surgical History Surgical History History of robot-assisted laparoscopic hysterectomy (05/19/23) robotic assisted laparoscopic hysterectomy with bilateral salpingectomy and ovarian preservation History of hysteroscopy (10/08/21) Hscope D&C / IUD removal / Bilateral salpingectomy History of gynecological procedure (03/07/12) mirena iud insertion/ removal in OR 10/08/2021 Hx of ovarian cystectomy (04/16/13) LAPAROSCOPY, LEFT OVARIAN CYSTECTOMY History of gynecological procedure (12/13/13) DX LAPARSCOPY, ADHESIOLYSIS History of ear surgery BILATERAL EAR RECONSTRUCTION AT AGE 11 Family History Family History Grandparent Cervical cancer maternal grandmother Heart disease Social History Social History (Updated 05/28/25 @ 14:30 by PAULA Heller) Smoking status: Never smoker Second hand tobacco smoke exposure: No Alcohol intake: current Drinks per week: 2 Alcohol use details: occasionally drinks hard alcohol Substance use: current Substance use type: marijuana Other substance usage details: smokes daily for relaxation Lack of Transportation: No Lack of Food: Often True Current Housing: Decline to Answer Concerned About Future Housing: Decline to Answer Difficulty Paying Gas/Electric Bills: Decline to Answer Difficulty Paying for Meds: Decline to Answer Currently Unemployed: Decline to Answer Education: Decline to Answer Difficulty w/ Childcare or Family Care: Decline to Answer Living arrangements: with family Additional living arrangements comments: Occupation/Education: occupation 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 There is no relevant family history pertinent to the presenting complaint Exam Narrative: GENERAL: Well-appearing, well-nourished, and in no acute distress. HEAD: Normocephalic, atraumatic. EYES: PERRLA, conjunctivae clear NECK: Supple. CHEST: Speaks in full sentences. No respiratory distress. HEART: Regular rate and rhythm. Normal and equal peripheral pulses. EXTREMITIES: Left wrist, hand, digits have grossly normal strength and sensation, grossly normal range of motion. No edema or ecchymosis. Normal sensation with sensitivity to light touch and pain. General wrist tenderness. No open wounds, no skin tenting, no devitalized tissue or atrophy, no trophic changes, no obvious deformity, alignment normal, nearby joints and structures intact. Distal pulses palpable and equal bilaterally, skin warm, dry, pink. Capillary refill less than 3 seconds. SKIN: Warm, dry, no rash. NEURO: Alert and oriented x3. PSYCH: Normal mood and affect Course Course Emergency Course: Patient is aware of diagnosis, understands and agrees to treatment plan. Anticipatory guidance given. Patient agrees to follow-up as directed and is aware of reasons to seek care at the emergency department. Portions of this record may have been created with voice recognition software Level of Care: [facility] Visit Vital Signs Vital signs: Vital Signs Temperature 97.3 F L 10/02/25 14:38 Pulse Rate 78 10/02/25 14:38 Respiratory Rate 16 10/02/25 14:38 Blood Pressure 102/66 10/02/25 14:38 Pulse Oximetry 100 10/02/25 14:38 Oxygen Delivery Room Air 10/02/25 14:38 Temperature 97.3 F L 10/02/25 14:38 Pulse Rate 78 10/02/25 14:38 Respiratory Rate 16 10/02/25 14:38 Blood Pressure 102/66 10/02/25 14:38 Pulse Oximetry 100 10/02/25 14:38 Oxygen Delivery Room Air 10/02/25 14:38 MDM Differential Diagnosis Differential Diagnosis: I evaluated this patient in the [facility]. History is obtained from patient who is an independent historian and physical exam was performed.? Available medical records were reviewed. ? Exam findings and relevant testing show no acute concerns or changes; patient is non-toxic appearing and is in no distress. ? Patients injury and/or pain is consistent with musculoskeletal etiology. No signs of neurological or vascular compromise on exam. Compartments and tissues are soft without signs of compartment syndrome. Pain is felt appropriate for further evaluation on an outpatient basis. Differential diagnosis and treatment plan were discussed with the patient. Patient agrees with discussion and after shared medical decision making agrees with plan of care. All questions were answered to the patient's satisfaction. Patient is appropriate for outpatient treatment and follow-up. Imaging Data My impression: Images reviewed, interpreted by radiologist, agree, see report. Radiologist's impression: EXAMINATION: XR wrist LT min 3V, 10/02/2025 14:46 WET SILK HANGER HISTORY: Fell on outstretched hand yesterday COMPARISON: No comparisons available. Findings: No acute fracture or malalignment. No significant degenerative changes. Soft tissues unremarkable. Impression: No acute fracture or malalignment. Discharge Plan Discharge Clinical Impression: Left wrist sprain Patient Disposition: Home Condition: Stable Instructions: Wrist Sprain (ED) Additional Instructions: Your x-ray is normal Avoid activities that cause pain until the pain subsides. Ice to the area 20-30 minutes 4-6 times a day Elevate above heart Elastic wrap or orthopedic splint as directed for comfort for the next 5-7 days Crutches as directed if needed Tylenol for lesser pain Ibuprofen regularly for the next 2-3 days for the inflammation Follow up with your primary care provider if the condition is not improving within 1 week. If the condition worsens with numbness, tingling, decrease sensation with wea kness seek treatment in the emergency room immediately. Patient Language: [place] Prescriptions: No Action vilazodone 10 mg tablet risperidone 0.5 mg tablet PO trospium 20 mg tablet 20 mg PO BID Rx Instructions: administer on an empty stomach Follow-up/Referrals: Dayan Torres APRN [Primary Care Provider, Family Practice] Stand Alone Forms: Work/School Release IP Time of Disposition: 14:59
--- OUTSIDE RECORDS SUMMARY | 2025-10-02 19:07 | XMS_ITS | Clinical Summary ---
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 Active HYDROcodone-acetami nophen (NORCO) 5-325 MG tabletIndications:A cute Pain < 7 Day Supply Take 1-2 tablets by mouth every 4 (four) hours as needed for Pain. Indications: Acute Pain < 7 Day Supply For Moderate Pain 20 tablet 4 Active ondansetron (ZOFRAN-ODT) 4 MG disintegrating tablet Take 1 tablet (4 mg total) by mouth every 8 (eight) hours as needed for Nausea. 20 tablet 4 Active Social History Tobacco Use Types Packs/Day Years Used Date Smoking Tobacco: Never Smokeless Tobacco: Never Tobacco Cessation:Counseling Given: Not Answered Alcohol Use Standard Drinks/Week Comments Yes 0 (1 standard drink = 0.6 oz pur e alcohol) occ Comments No Sex and Gender Information Value Date Recorded Sex Assigned at Not on file Legal Sex Female 7:12 PM CDT Gender Identity Not on file Sexual Orientation Not on file Last Filed Vital Signs Vital Sign Reading Time Taken Comments Blood Pressure 102/66 04/17/2024 11:30 PM CDT Pulse 60 04/17/2024 11:30 PM CDT Temperature 36.1 C (97 F) 04/17/2024 11:30 PM CDT Respiratory Rate 18 04/17/2024 8:45 PM CDT Oxygen Saturation 97% 04/17/2024 11:30 PM CDT Inhaled Oxygen Concentration - - Weight 68 kg (149 lb 14.6 oz) 04/17/2024 8:45 PM CDT Height 157.5 cm (5' 2) 04/17/2024 8:45 PM CDT Body Mass Index 27.42 04/17/2024 8:45 PM CDT Plan of Treatment Health Maintenance Due Date Last Done Comments Annual Physical 1992 Hepatitis C 2007 DTaP, Tdap and Td Vaccines ( 1 - Tdap) 2008 Hepatitis B Vaccines (1 of 3 - 19+ 3-dose series) 2008 HPV Vaccines (1 - 3-dose SCD M series) 2016 COVID-19 Vaccine (2024-2 6 season) 2025 Influenza Adult (#1) 2025 Hepatitis A Vaccines Aged Out No long er eligible based on patient's age to complete this topic Meningococcal B Vaccine Aged Out No l onger eligible based on patient's age to complete this topic Meningococcal Vaccine Aged Out No paulino junior eligible based on patient's age to complete this topic Pneumococcal Vaccine: Pediat rics (0 to 5 Years) and At-Risk Patients (6 to 49 Years) Aged Out No longer eligible b ased on patient's age to complete this topic RSV Immunizations Under 20 Months Aged Out No longer eligible based on patient's age to complete this topic Insurance [employer] Member Subscriber Plan / Payer (Ef fective 2021-Present) Name:Violette Marion Relation to Subscriber:Self Name:Violette Marion Payer ID:[id number] (NAIC) Group ID:Not on file Type:Not on file Address: [place] [id number] Care Teams Fixed Wing Aircraft Flight Engineer Relationship Specialty Start Date End Date Dayan Torres, LEAD [employer] OPERATOR- [address] [phone] PCP - General NURSE PRACTITIONER 05/01/23
--- OUTSIDE RECORDS SUMMARY | 2025-10-02 19:08 | XMS_ITS | Clinical Summary ---
Author Organization [facility] Virtual Care Address [address] [place] [phone] Phone Care Team Providers Care Power Plant Mechanic Name Role Phone Dayan Torres WEIGHT CLERK Primary Care Provider + Allergies No known active allergies Medications DULoxetine DR (CYMBALTA) 60 mg capsule Take by mouth daily Active trospium (SANCTURA) 20 mg tabletIndication s:OAB (overactive bladder) Take 1 tablet (20 mg total) by mouth 2 (two) times a day 60 tablet 11 06/27/2025 Active Active Problems No known active problems Social History Tobacco Use Types Packs/Day Years Used Date Smoking Tobacco: Unknown Tobacco Cessation:Counseling Given: Not Answered Comments Unknown Sex and Gender Information Value Date Recorded Sex Assigned at Not on file Legal Sex Female 8:26 AM CDT Gender Identity Not on file Sexual Orientation Not on file Plan of Treatment Health Maintenance Due Date Last Done Comments Cervical Cancer Screening 1989 Depression Screening 1989 Hepatitis C Screening 1989 DTaP/Tdap/Td Vaccine (1 - Tdap) 2000 Varicella Vaccines (1 of 2 - 13+ 2-dose series) 2002 Hepatitis B Screening 2007 Regular Well Visit/Exam 18-64 2007 HPV Vaccines (1 - 3-dose SCD M series) 2016 Influenza Vaccine (#1) 2025 Pneumococcal vaccine <65 Aged Out No longer eligible based on patient's age to complete this topic Insurance [employer] [place] PPO [place] Care Teams Power Plant Mechanic Relationship Specialty Start Date End Date Dayan Torres NP PCP - General Nurse Practitioner 01/18/23
--- OUTSIDE RECORDS SUMMARY | 2025-10-02 19:08 | XMS_ITS | Data Portability ---
Author Organization [facility] [employer], Main Office Address [address] [place] [address] Care Team Providers Care Doctor Of Naprapathic Medicine Name Role Phone RICHARD SMITH Anatomic Pathologist [phone] Assessment Encounter Date Assessment Date Assessment LastModified by Organization Details LastModified Time 05/04/2023 05/04/2023 D/w pt about her findings and further plan of care. Recent ED records reviewed with pt. Explained about different options. Will refer pt to GI. Meds as directed. Good liquid and fiber intake explained. Educated pt about alarming symptoms to monitor at home and call us back or get checked in ED. Pt verbalized understanding it. F/u with PCP in few weeks. CBC, UA before next visit. [email or web address] Not available 05/04/2023 15:18:17 Plan of Treatment Reminders Order Date Submit Date Provider Last Modified By Organization Details Last Modified Time Details Appointments None recorded . Lab rapid strep group A, throat [email or web address] [facility], [address], 17:57:22 rapid flu (A+B) [email or web address] [facility], [address], 17:57:22 CBC w/ auto diff 2022 023 [email or web address] [facility] [address] [place], [address], 3 17:32:46 urinalys is complete , reflex culture 2022 023 [email or web address] [facility] (Lab), [address] [facility] [place], [address], 3 17:33:07 urinalys is, dipstick [email or web address] [facility], [address] [facility] [address] , [place], [address], 3 13:31:00 lipid panel, serum [address] (Lab), [address] [place], [address], 3 09:34:27 TSH, serum or plasma [address] (Lab), [address] [place], [address], 3 09:34:27 CMP, serum or plasma [address] (Lab), [address] [place], [address], 3 09:34:27 glycohem oglobin, total, blood [address] (Lab), [address] [place], [address], 3 09:34:27 CBC w/ auto diff [address] (Lab), [address] [place], [address], 3 09:34:26 vitamin B12, serum 2022 023 [facility] (Lab), [address] [facility], [place], [address], 3 09:34:[address] referral - Several family members with colon cancer. Paternal aunt age 41, Paternal grandmot her age 50, maternal grandmot her 55 and 56. Colonosc opy. 2022 023 [email or web address] Andreas sanderson MD, [address], [address], [place], [address], 3 07:53:[address] referral 2022 023 [email or web address] Marge Leal MD, [address], [address], [place], [address], 3 10:47:31 Procedures None recorded . Surgeries None recorded . Imaging US, bladder [email or web address] [facility], [address] [facility] [address], [place], [address], 3 13:31:00 Medication Orders duloxeti ne 60 mg capsule, delayed release 2022 023 [id number], [address] [place] [address], [id number], 3 16:58:06 ciproflo xacin 500 mg tablet 2022 023 [facility], [address] [place] [address], [id number], 3 16:23:08 metronid azole 500 mg tablet 2022 023 [facility], [address] [place] [address], [id number], 3 16:23:22 ondanset marlin 4 mg disinteg rating tablet 2022 023 [email or web address]64, [address] [place], [place], [id number], 3 16:23:25 famotidi ne 20 mg tablet 2022 023 [facility]12234, [address] [place], [place], [id number], 3 16:23:12 Patient TargetsNo targets recorded. Patient Instructions Encounter Date Encounter Id Patient Instructions Last Modified By Organization Details Last Modified Time 03/01/2023 [id number] fu in 3 mo, sooner as needed. Not available 03/01/2023 16:57:16 05/04/2023 [id number] Thank you for your visit to our office today. We would like to request that you reach out to your referring or previous provider and request that they send us a Summary of Care in electronic form, so that we may have it on file in your medical record. At your visit, we had the medical records we needed to provide you with the best possible care; however, for insurance purposes, an electronic Summary of Care is beneficial. Thank you for your assistance in obtaining this information and we look forward to providing continued care to you. Please review your medication list from the Summary of Care for this visit. If there are any differences from what you are currently taking at home, please call us to discuss. Not available 05/04/2023 14:56:20 07/21/2023 [id number] Fu in 6 mo for anxiety/depressio n, weight, labs, colonoscopy. Not available 07/21/2023 17:00:08 Reason for Referral Sde Referral for Abdominal pain Referring Physician: Refugio Brown, Family Medicine, Encounter Date: 05/04/2023 Sde Referral for Screening for malignant neoplasm of colon Several family members with colon cancer. Paternal aunt age 41, Paternal grandmother age 50, maternal grandmother 55 and 56.Colonoscopy. Referring Physician: Dayan Torres, Family Medicine, Encounter Date: 07/21/2023 Results Created Date Observation Date Name Description Value Unit Range Abnormal Flag Note LastModifiedBy Organization Detail LastModifiedTime 04/07/20 23 04/07/2023 urina lysis , dipst ick Leukocytes (reference range: negative kristen/ l) Negati ve Not Available [facility] [address], [place], [address], 04/07/2023 12:37:32 04/07/2004/07/2023 urina lysis , dipst ick Nitrite (reference rage: negative mg/dl) negati ve Not Available [facility] [address], [place], [address], 04/07/2023 12:37:32 04/07/20 23 04/07/2023 urina lysis , dipst ick Urobilinogen (reference range: 0.2-1 mg/dl) 0.[address] [facility] [address], [place], [address], 04/07/2023 12:37:32 04/07/20 23 04/07/2023 urina lysis , dipst ick Protein (reference range: negative mg/dl) Negati ve Not Available [facility] [address], [place], [address], 04/07/2023 12:37:32 04/07/20 23 04/07/2023 urina lysis , dipst ick pH (reference range: 5-7) 7.0 Not Available [facility] [address], [place], [address], 04/07/2023 12:37:32 04/07/20 23 04/07/2023 urina lysis , dipst ick Blood (reference range: negative Reji/ l) Small Not Available [facility] [address], [place], [address], 04/07/2023 12:37:32 04/07/20 23 04/07/2023 urina lysis , dipst ick Specific [place] (reference range: 1.005-1.030) 1.[address] [facility] [address], [place], [address], 04/07/2023 12:37:32 04/07/2004/07/2023 urina lysis , dipst ick Ketone (reference range: negative mg/dl) Negati ve Not Available [facility] [address], [place], [address], 04/07/2023 12:37:32 04/07/20 23 04/07/2023 urina lysis , dipst ick Bilirubin (reference range: negative mg/dl) Negati ve Not Available [facility] [address], [place], [address], 04/07/2023 12:37:32 04/07/2004/07/2023 urina lysis , dipst ick Glucose (reference range: negative mg/dl) Negati ve Not Available [facility] [address], [place], [address], 04/07/2023 12:37:32 04/07/20 23 04/07/2023 urina lysis , dipst ick Appearance Clear Not Available [facility] [address], [place], [address], 04/07/2023 12:37:32 04/07/20 23 04/07/2023 urina lysis , dipst ick Color Yellow Not Available [facility] [address] [facility] [address], [place], [address], 04/07/2023 12:37:32 07/26/20 23 07/26/2023 rapid flu (A+B) Flu A negati ve Not Available [address], [address], 07/26/2023 17:56:53 07/26/20 23 07/26/2023 rapid flu (A+B) Flu B negati ve Not Available [address], [address], 07/26/2023 17:56:53 07/26/20 23 07/26/2023 rapid strep group A, throa t STREP A negati ve Not Available [address], [address], 07/26/2023 17:56:36 04/07/20 23 04/07/2023 US, bladd er No observ ation record ed. [email or web address] [facility] [address] [facility] [address], [place], [address], 05/04/2023 15:00:32 05/02/20 23 05/01/2023 CT, abdom en + pelvi s, w/o contr ast No observ ation record ed. [facility] [address] [facility], [place], [address], 05/04/2023 15:00:32 05/05/20 23 05/05/2023 US, pelvi s, compl ete No observ ation record ed. [email or web address] [facility] [address], [place], [address], 05/08/2023 21:52:14 10/27/19 24 10/26/2023 MAMMO , scree michael, digit al, bilat eral No observ ation record ed. [email or web address] [facility] [address], [place], [address], 10/28/2023 07:43:28 Result Notes None recorded. 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 63005065 Active Not Available [facility] 3 08:08:27 Decreased hearing 973231468 Active 2016 Not Available [facility] 3 08:08:26 Headache 01435007 Active 2016 Not Available [facility] 3 08:08:27 Pharyngiti s 852094204 Active 2016 Not Available [facility] 3 08:08:27 Dental abscess 430037859 Active 2017 Not Available [facility] 3 08:08:27 Cobalamin deficiency 290941354 Active 2019 Not Available [facility] 3 08:08:26 Sterilizat ion requested 519245561 Active 2020 Not Available [facility] 3 08:08:26 Restless sleep 68455046 Active 2021 Not Available [facility] 3 08:08:26 Mixed anxiety and depressive disorder 102100338 Active 2021 Not Available [facility] 3 08:08:27 Major depressive disorder 554277885 Active 2022 Not Available [facility] 3 08:08:27 Irritabili ty and anger 493537703 Active 2022 Dayan Torres, MARKUS [address] [facility], [address], [place], [address] , [facility] 3 15:02:20 Hearing loss 01111787 Active 2022 Dayan Torres NP [address], [address], [place], [address] , [facility] 3 16:46:02 Involuntar y movement 620274602 Active 2022 Dayan Torres NP [address], [address], [place], [address] , [facility] 3 15:00:22 Hearing loss 96710729 Active 2022 Dayan Torres NP [address], [address], [place], [address] , [facility] 3 16:42:17 Depressive disorder 46166720 Active 2022 Dayan Torres NP [address], [address], [place], [address] , [facility] 3 16:44:52 Insomnia disorder related to another mental disorder 09163232 Active 2022 Dayan Torres NP [address], [address], [place], [address] , [facility] 3 14:09:06 Bipolar disorder 40050422 Active 2022 Dayan Torres NP [address], [address], [place], [address] , [facility] 3 16:55:33 Urinary incontinen ce 115508292 Active 2022 Gucci Akers MD [address], [address], [place], [address] , [facility] 3 13:30:15 Nausea and vomiting 25756132 Active 2022 Refugio Brown MD [address], [address], [place], [address] , [facility] 3 15:08:08 Gastroente ritis 32264237 Active 2022 Refugio Brown MD [address], [address], [place], [address] , [facility] 3 15:09:01 Leukocytos is 758271656 Active 2022 Refugio Brown MD [address], [address], [place], [address] , [facility] 3 15:10:45 Microscopi c hematuria 973662618 Active 2022 Refugio Brown MD [address], [address], [place], [address] , [facility] 3 15:13:48 Upper respirator y infection 42837847 Active 2022 Dayan Torres NP [address], [address] [facility], [place], [address] , [facility] 3 17:56:29 Ganglion cyst of right foot 2071322310495 108 Active 2022 Dayan Torres NP [address], [address], [place], [address] , [facility] 3 16:57:50 Problem Notes None recorded. Procedures Surgical History Date Name Laterality Status Provider Name and Address Organization Details Recorded Time 4 Most Recent Mammogram completed Dayan Torres NP [address], [place], [address], [facility] 10/28/2023 07:43:12 3 Transitional_C are_Management completed Dayan Bennett RN [facility] 05/04/2023 14:56:20 1 Date of Last Pap Smear completed Not Available [facility] 12/22/2022 08:05:01 4 PERFORMANCE SPECIALIST Surgery completed Not Available [facility] 12/23/19 23 08:05:03 3 PERFORMANCE SPECIALIST Surgery completed Not Available [facility] 12/23/19 23 08:05:03 2 PERFORMANCE SPECIALIST Procedure completed Not Available [facility] 2022 08:05:03 ENT Surgery completed Not Available [facility] 12/22/2022 08:05:03 Imaging Results None recorded. Procedure Notes None recorded. Medical Equipment None Reported. Allergies No known drug allergies Medications Name Sig Start Date Stop Date Status Note LastModified by Organization Details LastModified Time prior authorizat ion request 12/31 completed Not Available Not Available Not Available quetiapine 25 mg tablet 05/04 completed Not Available Not Available Not Available amoxicilli n 500 mg capsule 03/19 completed Not Available Not Available Not Available Nasal [place] (oxymetazo line) 0.05 % USE 1 SPRAY EVERY 12 HOURS NEEDED active Not Available Not Available No t Available acetaminop hen 650 mg rectal suppositor y Insert 1 supposito ry every 6 hours by rectal route as needed. 11/08 completed Not Available Not Available Not Available clindamyci n HCl 300 mg capsule TAKE 1 CAPSULE BY MOUTH EVERY 6 HOURS FOR 7 DAYS 03/24 completed Not Available Not Available Not Available trazodone 50 mg tablet TAKE 1/2 TO 1 TABLET BY MOUTH EVERY DAY AT BEDTIME NEEDED 07/21 completed Not Available Not Available Not Available azithromyc in 250 mg tablet TK 2 TS PO ON DAY 1, THEN TK 1 T PO D FOR 4 DAYS 11/04 completed Not Available Not Available Not Available ibuprofen 800 mg tablet Take 1 tablet 3 times a day by oral route as needed. active Not Available Not Available No t Available fluconazol e 150 mg tablet TAKE 1 TABLET BY MOUTH EVERY DAY 08/18 completed Not Available Not Available Not Available hydrocodon e 5 mg-acetami nophen 325 mg tablet TAKE ONE TABLET BY MOUTH EVERY 3 HOURS NEEDED FOR PAIN 07/21 completed Not Available Not Available Not Available penicillin V potassium 500 mg tablet active Not Available Not Available Not Available metronidaz ole 500 mg tablet TAKE 1 TABLET BY MOUTH TWICE DAILY FOR 5 DAYS 07/21 completed Not Available Not Available Not Available phentermin e 37.5 mg tablet TAKE 1 TABLET BY MOUTH EVERY DAY active Not Available Not Available No t Available acetaminop hen 300 mg-codeine 30 mg tablet TAKE 1 TO 2 TABLETS BY MOUTH EVERY 4 HOURS active Not Available Not Available No t Available ciprofloxa julissa 500 mg tablet TAKE 1 TABLET BY MOUTH EVERY 12 HOURS FOR 5 DAYS DIRECTED 07/21 completed Not Available Not Available Not Available sulfametho xazole 800 mg-trimeth oprim 160 mg tablet Take 1 tablet every 12 hours by oral route. active Not Available Not Available No t Available oxycodone- acetaminop hen 5 mg-325 mg tablet TAKE 1 TABLET BY MOUTH EVERY 4 HOURS 10/14 completed Not Available Not Available Not Available propranolo l 10 mg tablet TAKE 1 TABLET BY MOUTH UP TO TWICE DAILY NEEDED FOR ANXIETY 05/04 completed psych Not Available Not Available Not Available amoxicilli n 875 mg tablet 01/21 completed Not Available Not Available Not Available Metrogel Vaginal 0.75 % (37.5 mg/5 gram) Insert 1 applicato rful by vaginal route for 5 days. 01/01 completed Not Available Not Available Not Available famotidine 20 mg tablet Take 1 tablet twice a day by oral route as directed for 30 days. 07/21 completed Not Available Not Available Not Available hydrocodon e 7.5 mg-acetami nophen 325 mg tablet active Not Available Not Available No t Available oseltamivi r 75 mg capsule TK 1 C PO BID FOR 5 DAYS 02/14 completed Not Available Not Available Not Available polymyxin B sulfate 10,000 unit-trime thoprim 1 mg/mL eye drops INSTILL 4 DROPS TO RIGHT EAR CANAL FOUR TIMES DAILY FOR 7 DAYS 08/18 completed Not Available Not Available Not Available bupropion HCl 75 mg tablet Take 1 tablet twice a day by oral route. active Not Available Not Available No t Available diclofenac sodium 75 mg tablet,del ayed release Take 1 tablet twice a day by oral route. active Not Available Not Available No t Available hydroxyzin e HCl 25 mg tablet TAKE 1 TABLET BY MOUTH EVERY DAY NEEDED FOR ANXIETY OR INSOMNIA 05/04 completed Not Available Not Available Not Available zolpidem 5 mg tablet Take 1 tablet every day by oral route as needed. active Not Available Not Available No t Available ibuprofen 600 mg tablet TAKE 1 TABLET BY MOUTH EVERY 6 HOURS NEEDED FOR CRAMPING 07/21 completed Not Available Not Available Not Available methylpred nisolone 4 mg tablets in a dose pack FOLLOW PACKAGE DIRECTION S 01/12 /2023 completed Not Available Not Available Not Available oxybutynin chloride 5 mg tablet TAKE 1 TABLET BY MOUTH DAILY 05/04 completed Not Available Not Available Not Available ondansetro n 4 mg disintegra ting tablet 07/21 completed Not Available Not Available Not Available neomycin 3.5 mg-polymyx in 10,000 unit-hydro fredrick 10 mg/mL eye drop,susp INT 1 GTT AEY Q 4 H FOR 7 TO 10 DAYS 02/14 completed Not Available Not Available Not Available amoxicilli n 875 mg-potassi um clavulanat e 125 mg tablet TK 1 T PO Q 12 H FOR 7 DAYS 02/14 completed Not Available Not Available Not Available olanzapine 5 mg disintegra ting tablet DISSOLVE 1 TABLET ON THE TONGUE EVERY DAY AT NIGHT 05/04 completed psych Not Available Not Available Not Available neomycin-p olymyxin-h ydrocort 3.5 mg-10,000 unit/mL-1 % ear drops,susp 06/16 completed Not Available Not Available Not Available Justin (28) 0.3 mg-30 mcg tablet TAKE 1 TABLET BY MOUTH EVERY DAY active Not Available Not Available No t Available escitalopr am 10 mg tablet Take 1 tablet every day by oral route. active Not Available Not Available No t Available escitalopr am 20 mg tablet TAKE 1 TABLET BY MOUTH EVERY DAY 12/16 completed Not Available Not Available Not Available aripiprazo le 5 mg tablet TAKE 1 TABLET BY MOUTH EVERY DAY 01/13 completed Not Available Not Available Not Available escitalopr am 5 mg tablet TAKE 1 TABLET BY MOUTH EVERY DAY 09/14 completed Not Available Not Available Not Available nitrofuran toin monohydrat e/macrocry stals 100 mg capsule TAKE 1 CAPSULE BY MOUTH EVERY 12 HOURS FOR 10 DAYS 03/24 completed Not Available Not Available Not Available duloxetine 30 mg capsule,de layed release TAKE 1 CAPSULE BY MOUTH EVERY DAY 01/27 completed Not Available Not Available Not Available duloxetine 60 mg capsule,de layed release Take 1 capsule every day by oral route. 2022 active Not Available Not Available Not Avai lable aripiprazo le 2 mg tablet Take 1 tablet every day by oral route. 01/13 completed Not Available Not Available Not Available Viorele (28) 0.15 mg-0.02 mg (21)/0.01 mg (5) tablet TAKE 1 TABLET BY MOUTH EVERY DAY active Not Available Not Available No t Available Vraylar 1.5 mg capsule Take by oral route for 30 days. 01/27 completed Not Available Not Available Not Available Caplyta 42 mg capsule TAKE 1 CAPSULE BY MOUTH EVERY DAY 05/04 completed Not Available Not Available Not Available Vitals Date Recorded Body height Body mass index (BMI) Body weight Body temperature Heart rate Heart rate Respiratory rate Oxygen saturation Systolic And Diastolic Provider Name and Address Organization Details Last Updated DateTime 3 160.02 cm 26.2 kg/m2 42266.6 7 g 96.9 [degF] 71 /min 71 /min 16 /min 98 % 122/72 mm[Hg] Dayan Torres NP [address], [address], [place] [employer] [facility] 3 16:59:33 Date Recorded Body height Body mass index (BMI) Body weight Body temperature Heart rate Oxygen saturation Systolic And Diastolic Provider Name and Address Organization Details Last Updated DateTime 3 160.02 cm 26.2 kg/m2 73986.6 7 g 97.9 [degF] 62 /min 99 % 128/91 mm[Hg] PAULA Chong [place] [employer] [facility] 3 12:41:36 Date Recorded Body temperature Provider Name a nd Address Organization Details Last Updated DateTime 05/04/2023 97.4 [degF] Murtaza Henriquez [address] [address], [place], [address], [employer] [facility] 05/04/2023 15:18:40 Date Recorded Body height Body mass index (BMI) Body weight Heart rate Respiratory rate Oxygen saturation Pain severity - 0-10 verbal numeric rating [Score] - Reported Systolic And Diastolic Provider Name and Address Organization Details Last Updated DateTime 3 160.02 cm 25.5 kg/m2 60686.3 5 g 74 /min 16 /min 98 % 5 122/84 mm[Hg] Dayan Bennett RN [facility] [employer] 3 14:59:42 Date Recorded Body height Body mass index (BMI) Body weight Body temperature Heart rate Respiratory rate Oxygen saturation Pain severity - 0-10 verbal numeric rating [Score] - Reported Systolic And Diastolic Provider Name and Address Organization Details Last Updated DateTime 3 160.02 cm 26.6 kg/m2 14469.2 1 g 95.6 [degF] 77 /min 16 /min 99 % 0 122/66 mm[Hg] Dayan Bennett RN [facility] [employer] [facility] 3 16:25:28 Date Recorded Body height Body mass index (BMI) Body weight Body temperature Heart rate Respiratory rate Oxygen saturation Pain severity - 0-10 verbal numeric rating [Score] - Reported Systolic And Diastolic Provider Name and Address Organization Details Last Updated DateTime 3 160.02 cm 26.1 kg/m2 63961.2 3 g 96.6 [degF] 73 /min 16 /min 99 % 4 128/80 mm[Hg] Dayan Bennett RN [facility] [employer] [facility] 3 17:22:15 Social History Question Answer Notes LastModified by Organizat ion Details LastModified Time Tobacco Smoking Status Never Smoker Dayan Bennett RN [facility] [employer] [facility] 07/21/2023 16:22:32 Do You Have An Advance Directive? No Information not available 01/13/2023 Do You Wear A Helmet When Biking? No Information not available 07/21/2023 Is Blood Transfusion Acceptable In An Emergency? Yes Information not available 07/21/2023 What Is Your Level Of Caffeine Consumption? Occasional Information not available 07/21/2023 How Much Tobacco Do You Chew? None [id number] Information not available 12/22/2022 What Is Your Code Status? Full Code Information not available 07/21/2023 In The 14 Days Before Symptom Onset, Have You Had Close Contact With A Laboratory-confir med COVID-19 While That Case Was Ill? No Information not available 07/21/2023 In The 14 Days Before Symptom Onset, Have You Had Close Contact With A Person Who Is Under Investigation For COVID-19 While That Person Was Ill? No Information not available 07/21/2023 What Type Of Diet Are You Following? REGULAR [id number] Information not available 12/22/2022 Which Illicit Or Recreational Drugs Have You Used? None Information not available 07/21/2023 How Many Days Of Moderate To Strenuous Exercise, Like A Brisk Walk, Did You Do In The Last 7 Days? 7 Information not available 07/21/2023 On Those Days That You Engage In Moderate To Strenuous Exercise, How Many Minutes, On Average, Do You Exercise? 60 Information not available 07/21/2023 Have There Been Any Changes To Your Family Or Social Situation? No Information no t available 07/21/2023 Do You Use Insect Repellent Routinely? Yes Information not available 07/21/2023 Where Do You Live? SingleLevelHouse Information not available 07/21/2023 Do You Have A Medical Power Of Goat Driver? No Information not available 07/21/2023 How Many Children Do You Have? 0 Information not available 07/21/2023 Do You Have Any Pets? Yes Information not available 07/21/2023 What Is Your Relationship Status? [id number] Information not available 12/22/2022 Do You Use Your Seat Belt Or Car Seat Routinely? Yes Information not available 07/21/2023 Do You Have Smoke And Carbon Monoxide Detectors In Your Home? Yes Information not available 07/21/2023 Are There Any Smokers In Your House? No Information not available 07/21/2023 Do You Participate In Social Media? Yes Information not available 07/21/2023 What Types Of Sporting Activities Do You Participate In? Walking Information not available 07/21/2023 Do You Use Sunscreen Routinely? Yes Information not available 07/21/2023 Has Tobacco Cessation Counseling Been Provided? No Information not available 07/21/2023 Have You Recently Traveled Abroad? No Information not available 07/21/2023 Do You Have Any Dietary Restrictions? No Information not available 07/21/2023 Sex: Female Functional Status Question Answer Note LastModified by Organizat ion Details LastModified Time Do you use any illicit or recreational drugs? No Information not available 07/21/2023 Do you or have you ever used any other forms of tobacco or nicotine? No Information not available 07/21/2023 What is your level of alcohol consumption? None Information not available 07/21/2023 Are you currently employed? 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 Never used electronic cigarettes Information not available 07/21/2023 What is your exercise level? Moderate Information not available 07/21/2023 Mental Status Question Answer Note LastModified by Organization D etails LastModified Time Do you feel stressed (tense, restless, nervous, or anxious, or unable to sleep at night)? [id number] Information not available 07/21/2023 Family History Relationship Description Onset Age of this Age Resolved Age Notes LastModified by Organization Details LastModified Time Maternal Grandmother Malignant neoplasm of cervix uteri Not available 16:22:04 Maternal Grandmother Malignant neoplasm of colon 55 56 [email or web address] Not available 2022 16:56:14 Paternal Aunt Malignant neoplasm of colon 41 [email or web address] Not available 2022 16:55:17 Paternal Grandmother Malignant neoplasm of colon 50 [email or web address] Not available 2022 16:55:59 Notes:NO hx of medical probl ems Medical History Condition Response BLINDNESS N RHEUMATIC FEVER N KIDNEY STONES N BLADDER PROBLEMS N MRSA N OTHER # 1 N POLIO N LUNG DISEASE/DISORDER N HISTORY OF DRUG ABUSE N RADIATION / CHEMOTHERAPY N COPD N Other # 2 N BLOOD DISEASES N SURGERY N EAR OR HEARING PROBLEMS N MUMPS N SHINGLES N FEMALE PROBLEMS / INFECTIONS N DEPRESSION (INCLUDING POST ) Y BOWEL PROBLEMS N STROKE/TIA N THYROID DISEASE N ULCERS N BENIGN PROSTATIC HYPERPLASIA N MEASLES N CERVICALGIA N TB SKIN TEST N HYPOTENSION N MYOCARDIAL INFARCTION N PARAPELGIA N OBESITY N GERD/NAUSEA N ANEURYSM N URINARY/BLADDER/KIDNEY PROBLEMS N CORONARY ARTERY DISEASE (CAD) N MENIERE'S DISEASE N ADDICTION CONCERNS N ENDOMETRIOSIS N USE OF BLOOD THINNERS N SKIN PROBLEMS N EMPHYSEMA N GASTROINTESTINAL DISORDER N MUSCLE,JOINT OR BONE PROBLEMS N GASTROINTESTINAL BLEEDING N BLOOD CLOTS N ASTHMA N CATARACTS N ERECTILE DYSFUNCTION N GI PROBLEMS N CHF N Low Testosterone N NEUROPATHY N INFERTILITY N AIDS/HIV N FRACTURES N CHEMOTHERAPY / RADIATION N VISION/EYE PROBLEMS N LIVER DISEASE N MALE HYPOGONADISM N HYPERTENSION N TOURETTE'S N ANXIETY DISORDER Y BLOOD TRANSFUSION N ANEMIA/BLOOD DISORDER N CHRONIC EAR INFECTIONS N BRONCHITIS N TUBERCULOSIS N GLAUCOMA N FOOT PROBLEM N DIVERTICULITIS N SLEEP APNEA N CHICKENPOX N ALLERGIES/HAYFEVER N INFECTIOUS DISEASE N PROSTATE N HEART ARRHYTHMIA N INSOMNIA N HIGH CHOLESTEROL / HYPERLIPIDEMIA N EYE PROBLEMS N HYPERTHYROIDISM N EATING DISORDER N EDEMA N CHRONIC PAIN SYNDROME N CAROTID BLOCKAGE N CONSTIPATION N BACK / NECK PROBLEMS N HAVE YOU BEEN HOSPITALIZED OR SEEN IN [facility] IN THE PAST YEAR ? N ATHEROSCLEROSIS N BREAST PROBLEMS N DIALYSIS N ECZEMA N FIBROMYALGIA N OSTEOPOROSIS N ARTHRITIS N NO SIGNIFICANT PAST MEDICAL HISTORY N APPENDICITIS N DIABETES, TYPE N BAD TEETH N HEARTBURN / REFLUX N ADD/ADHD N AUTISM SPECTRUM DISORDER (ASD) N HEPATITIS / LIVER DISEASE N PULMONARY DISEASE N GOUT N SLEEP DISORDER N ALZHEIMER'S DISEASE N PAIN N DEMENTIA N HERPES N SEIZURES/EPILEPSY N HEADACHES/MIGRAINES N VASCULAR DISEASE N PACEMAKER N DIZZINESS N HEART DISEASE/HEART PROBLEMS N KIDNEY DISEASE N SCARLET FEVER N MULTIPLE SCLEROSIS N DEVELOPMENTAL OR BEHAVIORAL DISORDERS N MENTAL DISORDER/ILLNESS N CANCER: SPECIFY N CARDIAC ARRHYTHMIA N PNEUMONIA N ATRIAL FIBRILLATION N Gall Stones N PULMONARY EMBOLISM N AUTOIMMUNE DISEASE N Gynecological History Statement/Question Response Abnormal Pap Y Flow Moderate Date of LMP 01/17/2023 STIs/STDs N Dislike of Light during Menstrual Headac he Y Date of Last Pap 08/05/2020 Duration of Flow (days) 5 Most Recent Mammogram 10/26/2023 Current Control Method Sterilizati on Age at Menarche 11 Breast Problems no How many live births 0 Date of Last Colonoscopy Frequency of Cycle (Q days) 28 Most Recent Bone Density Do you get headaches during your period N Date of Last Pap Smear 08/18/2021 Discharge no Obstetrics History GPAL:G 2 P 1 1 0 2 Type Value Full Term 1 Premature 1 Living 2 Total 2 Past Encounters Encounter ID Performer Location Encounter Start Date Encounter Closed Date Diagnosis/Indication Diagnosis SNOMED-CT Code Diagnosis ICD10 Code Diagnosis IMO Codes Diagnosis Note [id number] Refugio Brown MD [facility] [address] [place] [address] 03/11/2021 00:00:00 03/11/2021 16:30:54 [id number] Refugio Brown MD [facility] [address] [place] [address] 03/24/2021 00:00:00 03/24/2021 12:34:40 [id number] Refugio Brown MD [facility] [address] [place] [address] 05/27/2021 00:00:00 05/27/2021 14:41:19 [id number] Refugio Brown MD [facility] [address] [facility] [address] [place] [address] 06/03/2021 00:00:00 06/03/2021 16:39:00 [id number] Refugio Brown MD [facility] [address] [place] [address] 07/01/2021 00:00:00 07/01/2021 18:24:01 [id number] Refugio Brown MD [facility] [address] [facility] [address] [facility] [address] 07/24/2021 00:00:00 07/24/2021 17:44:36 [id number] [facility] Emergency Department ic_Gateway _ATHENA_M IGRATION_ DEFAULT_1 _1 , 08/18/2021 00:00:00 08/18/2021 18:43:09 [id number] Refugio Brown MD [facility] [address] [facility] [address] [facility] [place] [address] 08/28/2021 00:00:00 08/28/2021 17:50:19 [id number] Refugio Brown MD [facility] [address] [place] [address] 09/03/2021 00:00:00 09/03/2021 12:33:22 [id number] Refugio Brown MD [facility] [address] [place] [address] 09/08/2021 00:00:00 09/08/2021 17:12:53 [id number] Rolando bond MD [facility] General Surgery [address] [facility], [address] [address] 09/22/2021 00:00:00 09/22/2021 14:30:00 [id number] Refugio Brown MD [facility] [address] [place] [address] 09/25/2021 00:00:00 09/25/2021 17:23:58 [id number] Rolando bond MD [facility] General Surgery [address] [facility], [address] [address] 09/29/2021 00:00:00 09/29/2021 14:40:21 [id number] [facility] Emergency Department ic_Gateway _ATHENA_M IGRATION_ DEFAULT_1 _1 , 10/14/2021 00:00:00 10/14/2021 11:12:51 [id number] Refugio Brown MD [facility] [address] [place], [place] [address] [place] [address] 10/30/2021 00:00:00 10/30/2021 17:46:02 [id number] Refugio Brown MD [facility] [address] [place] [address] 01/20/2022 00:00:00 01/20/2022 17:10:26 [id number] [facility] [place] [address] [place], [place] [address] [place] [address] 07/20/2022 00:00:00 07/20/2022 15:53:59 [id number] Refugio Brown MD [facility] [address] [place] [address] 08/31/2022 00:00:00 08/31/2022 16:22:57 [id number] Refugio Brown MD [address] [address] 09/14/2022 00:00:00 09/14/2022 16:39:28 [id number] Refugio Brown MD [address] [address] 09/30/2022 00:00:00 09/30/2022 09:12:04 [id number] Refugio Brown MD [address] [address] 11/04/2022 00:00:00 11/05/2022 10:44:56 [id number] Refugio Brown MD [address] [address] 12/16/2022 00:00:00 12/16/2022 16:53:04 [id number] Dayan Torres NP [address] [address] 12/31/2022 14:39:33 12/31/2022 15:30:23 Mixed anxiety and depressive disorder [id number] F41.8 Duloxetine 30 mg po daily. Irritabili ty and anger 802095511 R45.4 Increase from 2 mg to 5 mg po daily on 12/31/22 [id number] Dayan Torres NP [address] [address] 01/13/2023 15:58:07 01/13/2023 16:50:43 Involuntary movement 583766611 R25.9 stopped the abilify and over time is getting less and less movements. Hearing loss 28306578 H9 1.93 will refer to audiologis t for hearing aide maintenenc e and testing. Depressive disorder 3548 9007 F32.A Cymbalta 30 mg po daily. Grandfathe r just passed. Schedule with psych and counselor. [id number] Dayan Torres NP [address] [address] 01/27/2023 16:02:21 01/27/2023 16:49:06 Depressive disorder 27409795 F32.A Cymbalta 30 mg po daily to 60mg dose on 01/27/23. Grandfathe r just passed. Schedule with psych and counselor. [id number] Dayan Torres NP [address] [address] 03/01/2023 16:15:16 03/01/2023 17:54:49 Mixed anxiety and depressive disorder 652909247 F41.8 Duloxetine 30 mg po daily. Bipolar disorder 5933420 4 F31.9 [facility]. Propranolo l, olanzapine , duloxetine . Anemia screening 5881877 07 Z13.0 Diabetes m ellitus screening 228204389 Z13.1 Thyroid di sorder screening 462390214 Z13.29 Hyperlipid emia screening 705524799 Z13.220 [id number] Gucci Akers MD [facility] Urology [address] [address] 04/07/2023 12:07:25 04/07/2023 13:05:59 Urinary incontinence 631645800 R32 Patient with mixed urinary incontinen ce mainly stress, Suggest MUS. She is going to have a hysterecto my first. [id number] Refugio Brown MD [address] [address] 05/04/2023 14:50:27 05/04/2023 15:20:22 Transition of care 4011225498 105 Z75.8 [facility] 815689515 Z76.89 Abdominal pain 04031330 R10.9 Lt side Nausea and vomiting 1693 1999 R11.2 Gastroenteritis 29554590 K52.9 Leukocytosis 918839711 D 72.829 Microscopic hematuria 19 0097305 R31.29 Depressive disorder 3548 9007 F32.A [id number] Dayan Torres NP [facility] [address] [place] [address] 07/21/2023 16:04:56 07/21/2023 17:28:29 Depressive disorder 27233636 F32.A Cymbalta 60mg dose on 01/27/23. Grandfathe r just passed. Schedule with psych and counselor. Screening for malignant neoplasm of colon 681898838 Z12.11 [id number] Dayan Torres NP [facility] [address] [place] [address] 07/26/2023 17:12:21 07/26/2023 18:01:54 Upper respiratory infection 35699357 J06.9 Rapid strep neg.FLU neg. Health Concerns Section Related Observation LastModified by Organization Detai ls LastModified Time None Recorded Concern Status LastModified by Organization Details LastModified Time None Recorded Advance Directives Directive N: Payers Insurance Date Sequence Insurance Name Policy Number Policy Gallego Covered Member ID Gallego Member ID Guarantor Name 08/01/2023 1 [facility] - DOS ON OR AFTER 21 (MEDICAID REPLACEMENT - HMO) Violette Marion [id number] Violette Marion 07/19/2023 [facility] Violette Marion Notes Date Note Type Note Provider Name and Address Organization Details Recorded Time 03/01/2023 text/html Here for follow up on anxiety and depression. States she got in to [facility]. Started on 3 meds. Olanzapine 5 mg, propranolol 10 mg bid, and hydroxyzine and duloxetine 60 mg. States she is too tired and slept all day today. Has called to them but no return call. States diagnosis is anxiety/depression , bipolar.FMLA through work is doing ok Dayan Torres NP [address] [facility], [facility] [address], [place], [address], [facility] [employer] 03/01/2023 17:00:06 04/07/2023 text/html 32 yo female with urinary incontinence. She has 2 kids by vaginal . s/p BTL. Not wearing pads. She endorses loss of urine with laughing sneezing coughing or activities. She does have urgency to void and her flatlock sewing machine operator started her on ditropan 5 mg short acting. She denies retention, recurrent infections or kidney problems. Gucci Akers MD [address] [address], [place], [address], [facility] [employer] [facility] [employer] [facility] 04/07/2023 13:31:20 05/04/2023 text/html ED fuv: C/o Lt sided abdominal pain for last 4 days, started on Tuesday. Pt denies any known sick contact/unusual outside food. Nausea, vomiting ++. So pt went to ED and had labs and CT and it was looking good. So pt was d/c to home. Overall little better than before. Denies any blood in urine/c/d/fever/ch ills. Refugio Brown MD [address], [place], [address], [employer] [facility] [email or web address] 05/04/2023 15:19:30 07/21/2023 text/html Here for check up. Mood- good. Taking cymbalta. Helps with energy and boosts mood.Getting good sleep. Feeling rested.No issues getting to work.Diet- well balanced meals. At night overeating between 7-9 pm Dayan Torres NP [address] [address], [place], [address], [facility] [employer] [facility] [employer] 07/21/2023 17:08:43 07/26/2023 text/html Here for sore throat, had headache, body aches, tired. No cough.No one at home sick. States it started all of a sudden. Works at [employer].No fever or chills. Using ibuprofen, and not helping. No covid test done. Dayan Torres NP [address] [facility] [address], [place], [address], [facility] [email or web address] 07/26/2023 17:59:54 OBGyn Episode No OBEpisode recorded.
--- OUTSIDE RECORDS SUMMARY | 2025-10-02 19:13 | XMS_ITS | Patient Health Record ---
Author Organization [facility] Address [address] [place] [address] Phone [phone] Care Team Providers Care Metal Grader Name Role Phone Ana Maria Arriola Primary Care Provider [phone] Allergies No Known Allergies Reason For Referral No Information Medications Medication SIG (Take, Route, Frequency, Duration) Notes Start Date End Date Diagnosis (ICD Code) Status RisperDAL 1 MG Tablet 1 tablet Orally Once a day; Duration: 30 days 05/17/2024 Bipolar 2 disorder, major depressive episode (ICD_10 - F31.81) Active Vilazodone HCl 10 MG Tablet 1 tablet with food Orally Once a day; Duration: 30 days 06/07/2024 Bipolar 2 disorder, major depressive episode (ICD_10 - F31.81) Active Social History Tobacco Use: Social History Observation Description Date Details (start date - stop date) Never Smoker NA - NA Sex Observation Social History Observation Description Sex Observation Female Sexual Orientation Social History Observation Description Sexual Orientation Choose not to disclo se Gender Identity Social History Observation Description Gender Identity Female Social History Miscellaneous Social Info Question Answer Notes Method of learning: Preferred method of learning: Reading,Discussion,Demons tration,Hearing Primary Social History Social Info Question Answer Notes Single Question Alcohol Screening How many times in the past year have you had (4 for women, or 5 for men) or more drinks in a day? 0 Tobacco Use: Social Info Question Answer Notes Tobacco Control (Standard) Tobacco use: Nonsmoker Additional Findings: Tobacco non-user Current no nsmoker Problems Problem Type SNOMED Code ICD Code Dates Problem Status W/U Status Risk Notes Problem Generalized anxiety disorder (72402523) Generalized anxiety disorder (F41.1) Added On:02/21 Active confirmed Problem Overweight (199738347) Over weight (E66.3) Added On:05/23 Active confirmed Problem Bipolar II disorder (97572142) Bipolar 2 disorder, major depressive episode (F31.81) Added On:02/21 Active confirmed continue to eval bipolar 2 vs MDD, MDQ score 7 Problem Sleep disturbance (19181430) Sleep disturbance, unspecified (G47.9) Added On:02/21 Active confirmed Problem Cannabis use disorder (9404451015) Cannabis use disorder (F12.90) Added On:02/21 Active confirmed Vital Signs Vital Sign Value Notes Appt Date Heart Rate 68 /min 05/23/2025 Temperature 97.9 degrees Fahrenheit 04/25 Respiratory Rate 18 /min 05/23/2025 Oximetry 100 % 05/23/2025 Blood pressure diastolic 58 mm Hg Height 62 in 05/23/2025 Blood pressure systolic 108 mm Hg 04/25 Weight 141.4 lbs 05/23/2025 BMI 25.86 kg/m2 05/23/2025 Encounters Date Time Type Facility Location Provider Diagnosis 4 01:00 PM [facility], [place] ([address]) [place] [address] [place] [address] Ana Maria Arriola Nutritional counseling Z71.3 and Bipolar 2 disorder, major depressive episode F31.81 5 04:00 PM Telehealth Office Visit, Est Pt., Level 4 ([address]) [facility] [address] [place] [address] Ana Maria Arriola Bipolar 2 disorder, major depressive episode F31.81 5 02:40 PM Office Visit, Est Pt., Level 4 ([address]) [facility] [address] [place] [address] Ana Maria Arriola Bipolar 2 disorder, major depressive episode F31.81 and Over weight E66.3 4 03:59 PM [facility] Encounter [facility] [address] [place] [address] Ana Maria Arriola Bipolar 2 disorder, major depressive episode F31.81 5 03:18 PM Telephone Encounter [address] [place] [address] Ana Maria Arriola Bipolar 2 disorder, major depressive episode F31.81 5 03:08 PM Telephone Encounter [address] [place] [address] Ana Maria Arriola Bipolar 2 disorder, major depressive episode F31.81 5 10:00 AM [facility]counter [facility] [place] [address] Ana Maria Arriola Bipolar 2 disorder, major depressive episode F31.81 Assessments Encounter Date Diagnosis (ICD Code) Assessment Notes Treatment Notes Section Notes 05/23/2025 Bipolar 2 disorder, major depressive episode (ICD-10 - F31.81) continue to eval bipolar 2 vs MDD, MDQ score 7 10/03/2024 Bipolar 2 disorder, major depressive episode (ICD-10 - F31.81) continue to eval bipolar 2 vs MDD, MDQ score 7 10/18/2024 Bipolar 2 disorder, major depressive episode (ICD-10 - F31.81) continue to eval bipolar 2 vs MDD, MDQ score 7 Continue current medications. Continue services as scheduled. Labs completed recently. May self-administer medications or be administered own oral medications per [facility] protocols. Provided informed consent with understanding of side effects, adverse effects, risks and benefits as well as alternative treatments as previously discussed and with the above recommended medications & other aspects of the treatment program. Agrees to return sooner if symptoms worsen or suicidal or homicidal ideations occur. 01/09/2025 Bipolar 2 disorder, major depressive episode (ICD-10 - F31.81) continue to eval bipolar 2 vs MDD, MDQ score 7 01/25/2025 Bipolar 2 disorder, major depressive episode (ICD-10 - F31.81) continue to eval bipolar 2 vs MDD, MDQ score 7 Continue current medications. Continue services as scheduled. Labs completed recently. May self-administer medications or be administered own oral medications per [facility] protocols. Provided informed consent with understanding of side effects, adverse effects, risks and benefits as well as alternative treatments as previously discussed and with the above recommended medications & other aspects of the treatment program. Agrees to return sooner if symptoms worsen or suicidal or homicidal ideations occur. 05/01/2025 Bipolar 2 disorder, major depressive episode (ICD-10 - F31.81) continue to eval bipolar 2 vs MDD, MDQ score 7 05/07/2025 Bipolar 2 disorder, major depressive episode (ICD-10 - F31.81) continue to eval bipolar 2 vs MDD, MDQ score 7 10/18/2024 Nutritional counseling (ICD-10 - Z71.3) 05/23/2025 Over weight (ICD-10 - E66.3) Plan Of Treatment No Information Insurance Providers Payer Name Payer Address Payer Phone Subscriber Number Group Number Insured Name Patient Relationship to Insured Coverage Start Date Coverage End Date [facility] [address] [place] [address] [id number] Violette Marion Self - patient is the insured 4 [facility] [facility] [address] [place] [address] [id number] Violette Marion Self - patient is the insured 3 4 Medical (General) History Surgical History Surgery Date(Month/Year) tubal ligation 09/2021 cyst removed off if toe on right foot Hospitalization History Reason Date(Month/Year)
== END 2025-10-02 15:10 | disposition home or self-care (01) ==
PROVIDERS: Emergency Provider Nurse Practitioner; PCP Nurse Practitioner Family
DX: S63.502A Unspecified sprain of left wrist, initial encounter (principal); W01.0XXA Fall on same level from slipping, tripping and stumbling without subsequent striking against object, initial encounter; F33.9 Major depressive disorder, recurrent, unspecified; F12.90 Cannabis use, unspecified, uncomplicated
CPT/HCPCS: 73110; 99213; G0463